=== PATIENT | male | born 1965 | race Two or more races ===

== ENCOUNTER → 2019-12-27 09:30 | Outpatient (BNVA) | payer MEDICARE, MEDICAID, SELFPAY | PROVIDERS: PCP Internal Medicine; Referring Provider Internal Medicine; Visit Provider Physician Assistant | DX: M17.12 Unilateral primary osteoarthritis, left knee (principal) | CPT/HCPCS: 20610; 99213; J1040 ==

== ENCOUNTER 2020-06-13 09:18 | Emergency (ER) | payer MEDICARE, MEDICAID, SELFPAY ==
--- NOTE | 2020-06-13 | ECG_ITS ---
Test Reason : CHEST PAIN Blood Pressure : / mmHG Vent. Rate : 078 BPM Atrial Rate : 078 BPM P-R Int : 188 ms QRS Dur : 086 ms QT Int : 356 ms P-R-T Axes : 035 -21 004 degrees QTc Int : 405 ms Normal sinus rhythm Voltage criteria for left ventricular hypertrophy Abnormal ECG When compared with ECG of 07-JUL-2019 12:16, No significant change was found Referred By: Generic ED Physician Electronically Signed By:BALDO CHASE
--- NOTE | ~2020-06-13 | XR_ITS ---
EXAMINATION: XR CHEST CLINICAL INFORMATION: Chest pain. COMPARISON: Chest done on 07/07/2019. TECHNIQUE: 2 views of the chest were obtained. FINDINGS: No significant abnormality is noted involving the heart, lungs, mediastinum, bony thorax or soft tissues. XR/XR chest 2V IMPRESSION: Unremarkable examination.
[2020-06-13 09:31] VITALS: BP 142/83; PULSE 78; RESP 20; TEMP 36.4; O2SAT 96
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
[2020-06-13] MEDS: 0.9 % Sodium Chloride 1,000 ML 999 ML IVCONT (09:52)
[2020-06-13 10:00] LABS: MANUAL DIFF FLAG NO
[2020-06-13 10:04] LABS: Basophils Percent Auto 0.1 % (0-2); Eosinophils Absolute Auto 0.1 X10*3/uL (0.0-0.4); Hematocrit 42.5 % (42-52); Hemoglobin 13.7 g/dl (14.0-18.0); Imm Gran Abs Auto 0.01 X10*3/uL (0.00-0.03); Imm Gran Pct Auto 0.1 % (0.0-0.4); Lymphocytes Absolute Auto 2.4 X10*3/uL (1.2-4.9); Lymphocytes Percent Auto 35.8 % (20-40); Mean Corpuscular HGB Conc 32.2 g/dl (31.0-36.0); Mean Corpuscular Hemoglobin 25.8 pg (27.0-33.0); Mean Corpuscular Volume 80.2 fL (80-98); Mean Platelet Volume 9.6 fL (9.4-12.4); Monocytes Absolute Auto 0.7 X10*3/uL (0.1-1.2); Neutrophils Absolute Auto 3.5 X10*3/uL (2.0-8.3); Platelet Count 275 X10*3/uL (160-400); White Blood Count 6.7 X10*3/uL (4.8-10.8)
[2020-06-13 10:11] LABS: Prothrombin Time 12.1 SEC (10.8-13.0)
[2020-06-13 10:14] LABS: Partial Thromboplastin Time 30.6 SEC (24.1-38.0)
[2020-06-13 10:38] LABS: Alanine Aminotransferase 29 U/L (0-40); Albumin Level 4.4 g/dL (3.5-5.0); Alkaline Phosphatase 56 U/L (39-117); Anion Gap 14 (12-20); Aspartate Amino Transferase 26 U/L (5-37); Bilirubin Total 0.5 mg/dL (0.0-1.0); Blood Urea Nitrogen 13 mg/dL (9-16); Calcium 9.3 mg/dL (8.4-10.2); Carbon Dioxide 24 mmol/L (22-29); Chloride 104 mmol/L (96-108); Estimated Glomerular Filt Rate > 60; Glucose Random 121 mg/dL (60-115); Magnesium 1.9 mg/dL (1.6-2.6); Potassium 4.7 mmol/L (3.3-5.1); Sodium 137 mmol/L (135-145); Total Protein 7.3 g/dL (6.5-8.0)
[2020-06-13 10:39] LABS: B Type Natriuretic Peptide 12 pg/mL (<100)
[2020-06-13 10:39] LABS: Troponin-I High Sensitivity < 3.5 ng/L (<3.5-35.0)
[2020-06-13 10:47] LABS: Influenza A PCR NEGATIVE (Negative); Influenza B PCR NEGATIVE (Negative); Resp Syncy Virus RNA Qual PCR NEGATIVE (Negative); SARS COV2 PCR INHOUSE NEGATIVE (Negative)
[2020-06-13 10:49] VITALS: BP 133/84; PULSE 74; RESP 18; TEMP 36.5; O2SAT 97
[2020-06-13 11:12] LABS: Glucose Urine UA NEG (NEG); Leukocyte Esterase Urine NEG (NEG); Nitrite Urine NEG (NEG); Specific Gravity - Urine 1.015 (1.005-1.025); Urine Blood NEG (NEG); Urine Ketones NEG (NEG); Urine Protein NEG (NEG-TRACE)
[2020-06-13 11:13] LABS: Appearance Urine CLEAR; Color Urine YELLOW
--- NOTE | 2020-06-13 11:36 | PC.NURSE ---
pt was evaluated by MD and PT, he was ambulatory with steady gait. He states pain better. IV removed. HE awaits discharge home.
[2020-06-13 11:45] VITALS: BP 133/84; PULSE 74; O2SAT 97
== END 2020-06-13 11:43 | disposition home or self-care (01) ==
PROVIDERS: Physician Assistant Medical; Emergency Provider Emergency Medicine Emergency Medical Services; PCP Internal Medicine
DX: K21.9 Gastro-esophageal reflux disease without esophagitis (principal); R07.89 Other chest pain; Z20.822 Contact with and (suspected) exposure to COVID-19; I10 Essential (primary) hypertension; Z86.73 Personal history of transient ischemic attack (TIA), and cerebral infarction without residual deficits
CPT/HCPCS: 0241U; 36415; 71046; 80053; 81003; 83735; 83880; 84484; 85025; 85610; 85730; 93005; 96360; 97161; 99284

== ENCOUNTER 2021-02-24 08:26 | Emergency (ER) | payer MEDICARE, MEDICAID, SELFPAY ==
--- NOTE | ~2021-02-24 | XR_ITS ---
EXAMINATION: XR CHEST CLINICAL INFORMATION: Left-sided rib pain COMPARISON: 06/13/2020 TECHNIQUE: 2 views of the chest were obtained. FINDINGS: Similar mild elevation right hemidiaphragm and crowding of lung markings on the right. No displaced rib fracture grossly. No significant abnormality is noted involving the heart, lungs, mediastinum, bony thorax or soft tissues. XR/XR chest 2V IMPRESSION: No active chest disease.
[2021-02-24 08:45] VITALS: BP 175/91; PULSE 82; RESP 18; TEMP 36.6; O2SAT 97; BMI 30.1
--- NOTE | 2021-02-24 09:46 | ED.GENADULT ---
HPI - General Adult General Chief complaint: Back Pain/Injury Stated complaint: back pain shortness of breath Time Seen by Provider: 02/24/21 09:32 Source: patient Mode of arrival: ambulatory Limitations: no limitations History of Present Illness HPI narrative: 55 y/o male with history of TBI, CVA, GERD, arthritis with chronic pain who presents to the ER with middle left back pain that started yesterday when he was cleaning his spare bedroom. He states he was twisting over and bending down to pick something up when his left middle back started hurting. The pain is throbbing and spasming and when it is severe it takes his breath away. He denies any fall or trauma. He has no chest pain or shortness of breath at rest. He has no fever cough. Pain is worse with movement and rotation. MD complaint: Left-sided thoracic back pain Onset (ago): day(s) (1) Location: back Radiation: non-radiation Severity: moderate Severity scale (1-10): 6 Quality: aching Pain Consistency: intermittent Relieving factors: immobilization and rest Exacerbating factors: movement Associated symptoms: denies other symptoms Treatments prior to arrival: none Related Data Home Medications Medication Instructions Recorded Confirmed amlodipine 5 mg-atorvastatin 20 mg 1 tab PO DAILY 12/27/19 tablet bupropion HCl 75 mg tablet 75 mg PO TID 12/27/19 onabotulinumtoxinA 100 unit SUBCUT 12/27/19 solution for injection (Botox) pravastatin 20 mg tablet 20 mg PO BEDTIME 12/27/19 sumatriptan 5 mg/actuation nasal 5 mg INTRANASAL Q2-4H PRN 12/27/19 spray Previous Rx's Medication Instructions Recorded cyclobenzaprine 10 mg tablet 10 mg PO TID PRN #10 tab 02/24/21 ibuprofen 600 mg tablet 600 mg PO Q8H PRN #14 tab 02/24/21 Allergies Allergy/AdvReac Type Severity Reaction Status Date / Time oxycodone [OxyContin] Allergy Unknown Verified 05/14/19 00:00 MSCONTIN Allergy Unknown HEADACHES Uncoded 11/21/19 18:10 Pt states no food allergies Allergy Unknown Uncoded 05/14/19 00:00 Review of Systems Review of Systems: Constitutional: No Fever, No Chills Cardiovascular: No Chest Pain, No SOB Respiratory: No Cough, No Sputum, No Wheezing, No dyspnea Gastrointestinal: No Nausea, No Vomiting, No Diarrhea, No abdominal Pain Genitourinary: No Dysuria, No Urinary Frequency, No Hematuria Musculoskeletal: No joint pain, + Myalgias Skin: No Skin Lesions, No rash Neuro: No Weakness, No Numbness Heme/Lymph: No Bruising PMFSH Past Medical History Medical History (Updated 02/24/21 @ 10:14 by FRANK Marino) Chronic pain High cholesterol Hypertension Migraines Surgical History H/O left knee surgery History of appendectomy Social History Social History Alcohol intake: never Advance Directives: No Advance Directives Information Provided: No Physical Exam Vital Signs: Vital Signs: Last Vital Signs Temp 97.9 F 02/24/21 08:45 Pulse 82 02/24/21 08:45 Resp 18 02/24/21 08:45 BP 175/91 H 02/24/21 08:45 Pulse Ox 97 02/24/21 08:45 BMI result Body Mass Index 30.1 Appearance: Alert. Oriented X3. No acute distress. HEENT: normal inspection CVS: Normal heart rate and rhythm. Pulses normal. Respiratory: No respiratory distress. Lungs are clear throughout. Back: Left middle thoracic area with soft tissue tenderness and palpable muscle spasm. No ecchymosis of left flank no CVA tenderness. Normal range of motion of the spine. Pain with rotation to the right Skin: Skin warm and dry. Normal skin color. Normal skin turgor. No rashes. Extremities: No inspection, normal range of motion x4 Neuro: Oriented X 3. No motor deficit. No sensory deficit. Course Course Course Narrative: 55-year-old male presenting with left-sided middle back pain that started yesterday after he was cleaning. He has tenderness and spasm on examination. Chest x-ray is clear. His clinical presentation and examination is most consistent with muscular back pain and spasm. Will prescribe muscle relaxers, NSAID, Lidoderm patches and have him follow-up with his primary care doctor next week. Patient is stable for discharge home. Patient agrees with plan. Discharge Plan Discharge Clinical Impression: Acute left-sided thoracic back pain Patient Disposition: Home, Self-Care Instructions: Back Pain (ED) Additional Instructions: Your x-ray today was normal. No bending, lifting or twisting. Use ice several times per day for 20 minutes at a time for the next 48 hours and then change to heat. Take medications as prescribed to help with pain and discomfort. Recommend [id number] topical lidocaine patches, apply to the area once per day. Follow up with your Primary Care Doctor this week. If your pain worsens, if you develop new numbness, tingling, weakness, loss of function or incontinence call 911 or come back to the ER right away for evaluation. Prescriptions: New cyclobenzaprine 10 mg tablet 10 mg PO TID PRN (Reason: muscle spasm) Qty: 10 RF: 0 ibuprofen 600 mg tablet 600 mg PO Q8H PRN (Reason: pain) Qty: 14 RF: 0 Interventions: ED Discharge Assessment Last Done: 02/24/21 10:20 Discharge Date/Time: 02/24/21 10:21
== END 2021-02-24 10:21 | disposition home or self-care (01) ==
PROVIDERS: Emergency Provider Emergency Medicine Emergency Medical Services; PCP Internal Medicine
DX: M54.6 Pain in thoracic spine (principal); R07.9 Chest pain, unspecified; Z79.899 Other long term (current) drug therapy
CPT/HCPCS: 71046; 99283

== ENCOUNTER 2021-04-27 10:13 | Emergency (ER) | payer MEDICARE, MEDICAID, SELFPAY ==
[2021-04-27 10:31] VITALS: BP 180/80; PULSE 77; RESP 16; TEMP 36.4; O2SAT 98; BMI 30.8
--- NOTE | 2021-04-27 10:52 | ED.URI ---
HPI - URI/Sore Throat General Chief Complaint: Upper Respiratory Symptoms Stated Complaint: Sore Throat Time Seen by Provider: 04/27/21 10:52 Source: patient Mode of arrival: ambulatory Limitations: no limitations History of Present Illness HPI Narrative: Patient is a 55 year old male presenting to the emergency department today with a sore throat. Patient states that since last Monday, he has had a sore throat. Patient states that he was supposed to be getting a root canal today so he was started on Amoxicillin last Monday but he isn't sure what dose. Patient denies any dizziness, lightheadedness, abdominal pain, nausea, vomiting, fever, chills, blurry vision, double vision, loss of vision, chest pain, cough, difficulty breathing, shortness of breath, back pain, night sweats, pain with urination, increased urinary frequency, increased urinary urgency, blood in his urine or stool, syncope or a near syncopal episode, recent trauma or falls, bowel incontinence, bladder incontinence, bowel retention, bladder retention, or any other complaints at this time. MD elicited complaint: sore throat Onset (ago): day(s) (4) Consistency: constant Severity: mild Treatments prior to arrival: antibiotics (Amoxicillin) Related Data Home Medications Medication Instructions Recorded Confirmed amlodipine 5 mg-atorvastatin 20 mg 1 tab PO DAILY 12/27/19 tablet bupropion HCl 75 mg tablet 75 mg PO TID 12/27/19 onabotulinumtoxinA 100 unit SUBCUT 12/27/19 solution for injection (Botox) pravastatin 20 mg tablet 20 mg PO BEDTIME 12/27/19 sumatriptan 5 mg/actuation nasal 5 mg INTRANASAL Q2-4H PRN 12/27/19 spray Previous Rx's Medication Instructions Recorded cyclobenzaprine 10 mg tablet 10 mg PO TID PRN #10 tab 02/24/21 ibuprofen 600 mg tablet 600 mg PO Q8H PRN #14 tab 02/24/21 amoxicillin 500 mg capsule 500 mg PO BID 10 Days #20 cap 04/27/21 methylprednisolone 4 mg tablets in 4 mg PO DAILY #21 ea 04/27/21 a dose pack (Medrol (Mane)) Allergies Allergy/AdvReac Type Severity Reaction Status Date / Time oxycodone [OxyContin] Allergy Unknown Verified 05/14/19 00:00 MSCONTIN Allergy Unknown HEADACHES Uncoded 11/21/19 18:10 Pt states no food allergies Allergy Unknown Uncoded 05/14/19 00:00 Review of Systems Constitutional: Constitutional: Reports no additional constitutional complaints, Denies chills, Denies fever(s) and Denies night sweats Eyes: Eyes: Reports no additional eye complaints, Denies blurry vision, Denies change in vision, Denies diplopia, Denies eye discharge, Denies loss of vision and Denies eye pain ENT: Denies dizziness and Reports sore throat Cardiovascular: Cardiovascular: Reports no additional cardiovascular complaints, Denies chest pain, Denies lightheadedness, Denies Loss of Consciousness and Denies dyspnea Respiratory: Respiratory: Reports no additional respiratory complaints and Denies dyspnea Gastrointestinal: Gastrointestinal: Reports no additional gastrointestinal complaints, Denies abdominal pain, Denies melena, Denies hematochezia, Denies change in bowel habits and Denies change in stool character Genitourinary: Genitourinary: Reports no additional male genitourinary complaints, Denies hematuria, Denies oliguria, Denies difficulty urinating, Denies dysuria, Denies urinary frequency, Denies urinary hesitancy, Denies urinary incontinence and Denies urinary urgency Musculoskeletal: Musculoskeletal: Reports no additional musculoskeletal complaints, Denies numbness and Denies tingling Neurologic: Denies dizziness, Denies loss of vision, Denies numbness and Denies tingling Psychiatric: Psychiatric: Reports no additional psychiatric complaints Endocrine: Endocrine: Reports no additional endocrine complaints Hematologic/Lymphatic: Hematologic/Lymphatic: Reports no additional hematologic/lymphatic complaints Allergic/Immunologic: Allergic/Immunologic: Reports no additional allergic/immunologic complaints [facility] Past Medical History Attestation statement: The following information was validated with the patient. Source: old records reviewed Medical History Chronic pain High cholesterol Hypertension Migraines Surgical History H/O left knee surgery History of appendectomy Social History Social History Alcohol intake: never Advance Directives: No Advance Directives Information Provided: No Physical Exam Vital Signs: Vital Signs: Last Vital Signs Temp 97.5 F 04/27/21 10:31 Pulse 77 04/27/21 10:31 Resp 16 04/27/21 10:31 BP 180/80 H 04/27/21 10:31 Pulse Ox 98 04/27/21 10:31 BMI result Body Mass Index 30.8 Const: General: cooperative, no acute distress, alert and awake Nutritional Appearance: well nourished Orientation/consciousness: patient oriented x3 Limitations: no limitations HENMT: Head: Yes normal to inspection and Yes atraumatic Ears: hearing grossly normal bilaterally and external ears normal General nose exam: Normal external nose present, no nasal discharge noted and no epistaxis Face and sinus: Yes normal facial exam, No abrasion and No laceration Mouth: Normal oral and palatal mucosa present, no drooling and no muffled voice Throat: Yes uvula midline and Yes other (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) Eyes: General: appearance normal, both eyes and all related structures Periorbital: periorbital findings normal Eyelids: Yes eyelids normal Conjunctivae: conjunctivae normal Pupils: Equal, round and reactive pupils present EOM: EOMs intact bilaterally Neck: Neck: Yes normal visual inspection, Yes full ROM and Yes no lymphadenopathy Chest: Chest palpation & inspection: normal inspection of the chest Resp: Effort & Inspection: normal respiratory effort and able to speak in complete sentences Auscultation: clear to auscultation bilaterally GI: Inspection: Yes normal to inspection Neuro: General: patient oriented x3 and moves all extremities Cranial nerves: Yes Equal, round and reactive pupils present Cognition (Neuro): normal cognition Motor exam (neuro): 5/5 motor strength present throughout Sensory Exam: Normal double simultaneous stimulation for sensation Coordination: [id number] test normal Extrem: General: Yes normal to inspection, Yes full ROM and Yes capillary refill normal Psych: Appearance: grossly normal Mental Status: mental status grossly normal Affect: normal affect Attitude: cooperative Thought process: Normal thought process present Thought content: Normal thought content present Insight: Good insight present (Psych) MDM - URI/Sore Throat MDM Narrative Medical decision making narrative: Patient is a 55 year old male presenting to the emergency department today with a sore throat. Patient's physical exam showed posterior pharyngeal erythema with exudates however, the patient's voice was appropriate, not hoarse, and the patient's uvula was midline. I explained my physical exam findings to the patient. I answered all questions asked by the patient. I explained to the patient that he is experiencing strep throat and that since he does not know his current dose of Amoxicillin, I will write a prescription for the appropriate dose as well as low dose steroids to assist with his discomfort. I stressed the importance of the patient taking his medication as prescribed. I stressed the importance of the patient following up with his primary care provider and dentist as scheduled. I stressed the importance of the patient returning to the emergency department immediately if his symptoms were to worsen or if he were to develop any hoarseness, drooling, dizziness, shortness of breath, difficulty breathing, chest pain, blurry vision, loss of vision, nausea, vomiting, abdominal pain, fever, chills, back pain, or any other complaints. Patient verbalized agreement and understanding with this treatment plan and discharge. Differential Diagnosis Differential diagnosis: Likely upper respiratory infection, viral infection and pharyngitis Medical Records Attestation: I reviewed the patient's medical records. Discharge Plan Discharge Clinical Impression: Pharyngitis Patient Disposition: Home, Self-Care Instructions: Pharyngitis (ED) Additional Instructions: Follow up with your primary care provider. Return to the emergency department immediately if your symptoms worsen or if you develop any dizziness, shortness of breath, difficulty breathing, chest pain, blurry vision, loss of vision, nausea, vomiting, abdominal pain, fever, chills, back pain, or any other complaints. Prescriptions: New amoxicillin 500 mg capsule 500 mg PO BID 10 Days Qty: 20 0RF methylprednisolone [Medrol (Mane)] 4 mg tablets,dose pack 4 mg PO DAILY Qty: 21 0RF No Action cyclobenzaprine 10 mg tablet 10 mg PO TID PRN (Reason: muscle spasm) Qty: 10 0RF ibuprofen 600 mg tablet 600 mg PO Q8H PRN (Reason: pain) Qty: 14 0RF Interventions: ED Discharge Assessment Last Done: 04/27/21 11:43 Discharge Date/Time: 04/27/21 11:44 Print Language: [place]
== END 2021-04-27 11:44 | disposition home or self-care (01) ==
LOC: HO.ED 11:23
PROVIDERS: Emergency Provider Emergency Medicine; PCP Internal Medicine
DX: J02.9 Acute pharyngitis, unspecified (principal); I10 Essential (primary) hypertension
CPT/HCPCS: 99283

== ENCOUNTER 2023-02-09 09:43 | Outpatient (AMB) | payer MEDICARE, MEDICAID, SELFPAY ==
--- NOTE | 2023-02-09 09:52 | A.OFFVIS_ITS ---
Intake Intake Visit Reasons: OV - Left Knee OA - Last Inj 12/27/2019 Intake Note: Aden is a 57 year old male who presents today for a follow up appointment of his left knee. Last injection done 12/27/2019 with Nanette. Patient reports that this injection was helpful, he would like to repeat injection today. Allergies oxycodone [OxyContin] Allergy (Unknown, Verified 02/09/23 10:06) Unknown MSCONTIN Allergy (Unknown, Uncoded 02/09/23 10:06) HEADACHES Pt states no food allergies Allergy (Unknown, Uncoded 02/09/23 10:06) Unknown HPI OV - Left Knee OA - Last Inj 12/27/2019 HPI Details Aden is a 57 year old man who presents to discuss his left knee OA. He complains of pain with daily activity He last received a knee injection on 12/27/19, by FRANK Pena. He found this helpful and would like to repeat an injection today. He has a hx of left knee surgery in ~5834-2061. [facility] Medical History Chronic pain Migraines High cholesterol Hypertension Surgical History History of appendectomy H/O left knee surgery Social History Alcohol intake: never Review of Systems Const All systems reviewed & are unremarkable except as noted in HPI and below Physical Exam Const General: no acute distress, alert and awake Orientation/consciousness: patient oriented x3 HEENT Head: Yes normocephalic and Yes atraumatic Eyes EOM: EOMs intact bilaterally Resp Effort & Inspection: normal respiratory effort and able to speak in complete sentences Cardio Jugular venous distension: no JVD Skin General skin exam: turgor normal Rashes: no rashes Neuro General: patient oriented x3 Psych Other: no jlt lateral retropatellar TTP Appearance: grossly normal Affect: normal affect Attitude: cooperative Office Procedures Joint Injection/Drain Joint Injection/Drain Details: Injected 1 mL of Decadron and 3 mL 1% lidocaine and 3 mL of 0.25% Marcaine. Site was prepped using aseptic technique. Patient tolerated the procedure well. Primary Site: left knee Approach Used: anterolateral Coding 53779 - Large joint Procedure code (CPT) selection complete Assessment & Plan Assessment & Plan (1) Patellofemoral arthritis of left knee: Code(s): M17.12 - Unilateral primary osteoarthritis, left knee Plan: Injected left knee. Stable and without need for more aggressive interventions Plan Scribed for Herberth Caldwell MD by Rahul Dempsey, medical or surgical instrument maker, on 02/09/23 at 10:45 AM, EST. Coding Level of Care Code Est Pt Level 3 (84684) Diagnoses Patellofemoral arthritis of left knee M17.12 CPT Codes Coding - Large joint: 45053 - Large joint ([id number])
== END 2023-02-09 11:25 | disposition home or self-care (01) ==
PROVIDERS: PCP Internal Medicine; Visit Provider Orthopaedic Surgery
DX: M17.12 Unilateral primary osteoarthritis, left knee (principal)
CPT/HCPCS: 20610; 99213

== ENCOUNTER → 2023-02-09 09:43 | Outpatient (BNVA) | payer MEDICARE, MEDICAID, SELFPAY | PROVIDERS: PCP Internal Medicine; Visit Provider Orthopaedic Surgery | DX: M17.12 Unilateral primary osteoarthritis, left knee (principal) | CPT/HCPCS: 20610; 99212; J0665; J1100 ==

== ENCOUNTER 2024-04-27 09:11 | Emergency (ER) | payer MEDICARE, MEDICAID, SELFPAY ==
--- NOTE | ~2024-04-27 | XR_ITS ---
CLINICAL HISTORY: short of breath 1 view chest x-ray Comparison: 06/13/2020 Findings: The lungs are clear. Heart size is normal. No acute fracture. IMPRESSION: 1. No acute findings. This document has been electronically signed by: Tara Gates MD on 04/27/2024 11:00:48
[2024-04-27 09:32] VITALS: BP 126/82; PULSE 106; RESP 18; TEMP 37.4; O2SAT 96; BMI 28.7
--- OUTSIDE RECORDS SUMMARY | 2024-04-27 09:52 | XMS_ITS ---
Author Name [facility] Organization Unknown History of Medication Use Medication Directions Dispensed Refills Start Date End Date Stat us Cholecalciferol (Vitamin D) 50 MCG (1999) CAPS Take 1 capsule by mouth daily. 04/03/2023 active SUMAtriptan (IMITREX) 50 MG tablet Take 50 mg by mouth every 2 (two) hours as needed for migraine. 09/15/2023 aborted buPROPion (Wellbutrin SR) 200 MG 12 hr tablet Take 300 mg by mouth daily. active atorvastatin (LIPITOR) tablet 10 mg Take 1 tablet (10 mg total) by mouth every night at bedtime. 07/04/2023 active pravastatin (PRAVACHOL) tablet 20 mg Take 20 mg by mouth daily. 09/15/2023 aborted botulinum toxin type A (BOTOX) 100 units SOLR injection every 3 (three) months. active Meloxicam 10 MG CAPS Take by mouth. 09/03 aborted Problems Problem Status Onset Date Problem Type Date of Resolution Source Tension headache active EncounterDiagnosisAct CTTHNEMG Migraine without aura and without status migrainosus, not intractable active EncounterDiagnosisAct CTT HNEMG
--- OUTSIDE RECORDS SUMMARY | 2024-04-27 09:53 | XMS_ITS | Encounter Summary ---
Author Organization [facility] Address [address] [place] [address] Care Team Providers Care External Auditor Name Role Phone Corinne Devi MD Primary Care Provider [phone] Reason for Referral * Orthopedic (Routine) - Authorized Specialty Diagnoses / Procedures Referred By Contac t Referred To Contact Orthopedic Surgery / Orthopaedic Surgery Diagnoses Arthritis of carpometacarpal (CMC) joint of right thumb Procedures Small Inj/Asp: R thumb CMC Aleida Iglesias MD [address] [address] Phone: tel: fax: Referral ID Status Reason Start Date Expiration Date V isits Requested Visits Authorized [id number] Authorized 04/05/2024 04/05/2025 1 1 Reason for Visit * Reason Comments Follow-up Had surgery a few ye ars back but gets intermittent swelling and pain with activity Encounter Details Date Type Department Care Team (Latest Contact Info) Description 04/05/2024 10:15 AM EST Office Visit Orthopedic Surgery - [place] [address] [address] Aleida Iglesias MD [address] [address] Arthritis of carpometacarpal (CMC) joint of right thumb (Primary Dx) Social History Tobacco Use Types Packs/Day Years Used Date Smoking Tobacco: Former Cigarettes Q uit: 12/09/1984 Smokeless Tobacco: Never Alcohol Use Standard Drinks/Week Comments Never 0 (1 standard drink = 0.6 oz pur e alcohol) Housing Instability Answer Date Recorde d Are you worried that in the next 2 months you may not have stable housing? No 03/29/2024 Food Access & Nutrition Answer Date Rec orded Do you have access to a vari ety of food including fruits and vegetables? Yes 03/29/2024 Access to Healthcare Answer Date Record ed Within the last 3 months, ho w many times did you visit the emergency department for your medical care? 0 03/29/2024 Health Literacy Answer Date Recorded How often do you need to hav e someone help you when you read instructions, pamphlets, or other written material from your doctor or pharmacy? Rarely 03/29/2024 Caregiver: How often do you need to have someone help you when you read instructions, pamphlets, or other written material from your doctor or pharmacy? Not on file 03/29/2024 Financial Risk Answer Date Recorded How hard is it for you to pa y for the very basics like food, housing, medical care, and air conditioning / heating? Somewhat hard 03/29/2024 Transportation Answer Date Recorded Has the lack of transportati on kept you from meetings, work, or from getting things needed for daily living? No Has the lack of transportati on kept you from medical appointments or from getting medications? No 03/29/2024 Social Isolation Answer Date Recorded How often do you feel lonely or isolated from th ose around you? Never 03/29/2024 Food Risk Answer Date Recorded Within the past 12 months we worried whether our food would run out before we got money to buy more. Never true 03/29/2024 Within the past 12 months th e food we bought just didn't last and we didn't have money to get more. Never true 03/29/2024 Dependent Care Answer Date Recorded Do you need help finding or paying for care for your loved ones. For example, residential child care counselor or elderly care for an older adult? No 03/29/2024 Education Answer Date Recorded Do you think completing more education or training, like finishing a GED, going to college, or learning a trade, would be helpful for you? No 03/29/2024 Employment and Income Answer Date Recor ded During the last four weeks, have you been actively looking for work? No 03/29/2024 Living Situation Answer Date Recorded What is your living situation? 0 03/29/2024 Sex and Gender Information Value Date Recorded Sex Assigned at Male 04/03/2024 1:38 PM EST Legal Sex Male 6:16 PM EST Gender Identity Male 04/03/2024 1:38 PM EST Sexual Orientation Straight 04/03/2024 1: 38 PM EST documented as of this encounter Last Filed Vital Signs Vital Sign Reading Time Taken Comments Blood Pressure - - Pulse - - Temperature - - Respiratory Rate - - Oxygen Saturation - - Inhaled Oxygen Concentration - - Weight 95.3 kg (210 lb) 04/05/2024 10:11 AM EST Height 177.8 cm (5' 10 ) 04/05/2024 10:11 AM EST Body Mass Index 30.13 04/05/2024 10:11 AM EST documented in this encounter Progress Notes * Aleida Iglesias MD - 04/05/2024 10:15 AM ESTAssociated Order(s): Small Inj/Asp: R thumb CMC CHIEF COMPLAINT/REASON FOR VISIT: Right thumb pain SUBJECTIVE: Patient returns with a new issue. He states that with the recent snow fall he had been out shoveling in the wake of that really aggravated his right thumb. Both hands are a bit sore but it is the right one that persisted. When he uses his hand now he notes that it looks swollen around the thumb raythat is achy and painful. He does not report a history of any injury to that thumb in particular. He is not having any numbness or tingling. OBJECTIVE: There is no visible swelling at present of either thumb ray however what is noticeable looking at the 2 [id number] is that he has a slightly angulated resting posture of the right phalanx on the metacarpal. It looks like he probably has some chronic laxity of the radial collateral ligament. When I test the 2 sides the right side is definitely more lax. He has a very discernible endpoint of the RCL on his left side. The UCL is intact on both sides. There is no swelling. There is some crepitance to palpation at the right basal joint. There is no crepitance on the left. XR Fingers 2+ Views bilat AP, lateral, oblique of diqq-le-iyes bilateral thumbs was obtained on 04/05/2024. There are no prior images available for comparison. There is some generalized osteopenia. On the AP views what is most notable is that the resting posture of the MP joint of the right thumb suggest chronic laxity of the radial collateral ligament. There is some arthrosis on the head of the metacarpal. There is some mild joint space narrowing at the basal joint more so on the right than on the left. There are some subchondral cysts of the trapezium on the right. Impression: Laxity of the radial collateral ligament of the MP joint on the right. CMC arthritis on the right thumb. ASSESSMENT: 1. Arthritis of carpometacarpal (CMC) joint of right thumb Patient has some arthritis at the thumb. I reviewed the x-rays with him in detail. He also has somelaxity at the MP joint. I think what is more symptomatic for him is the basal joint. Treatment options including splinting, injections, and surgery were reviewed. Will try an injection right now to quiet down and he will get a CMC splint dispensed. PLAN: Small Inj/Asp: R thumb CMC Indications: pain Details: 25 G needle, dorsal approach Medications: 20 mg triamcinolone acetonide 40 mg/mL The dorsum of the right CMC joint was prepped with Betadine and alcohol. Skin was anesthetized witha small wheal of 1% lidocaine with epinephrine. After that had a chance to take effect we then prepped the skin again and I then injected half a cc of 40 mg of Kenalog into the joint. A bandage was applied. He tolerated this well. Post injection instructions were given. Informed Consent: Laterality: Right Procedure/treatment, purpose, treatment alternatives, risks/potential complications and benefits explained: yes Patient questions answered: yes Patient agrees, verbalizes understanding, and wants to proceed: yes Consent given by: Patient Informed consent discussion completed by Physician/CATALINA with patient: Verbal Pre-procedure timeout performed: yes Patient tolerated this well. He will follow-up with us on a as needed basis. Aleida Iglesias MD documented in this encounter Plan of Treatment Upcoming Encounters Date Type Department Care Team (Late st Contact Info) Description 07/12/2024 8:30 AM EDT Office Visit [facility] - [place] 175 [facility] [address] [place] [phone] Tess Sun MD 175 [facility] [address] [place] [phone] 08/02/2024 8:45 AM EDT Office Visit Adult Medicine [facility] [address] [place] [address] Corinne Devi MD [address] [place] [address] 12/03/2024 9:30 AM EDT Consult Bariatric Surgery - [place] 175 [facility] [address] [place] [phone] [facility] 271 [facility] 120 [place] [address] 01/21/2025 8:45 AM EST Office Visit Pulmonolgy - [place] 175 [facility] 200 [place] [phone] Gertrude Alaniz MD 175 [facility] [address] [place] [address] documented as of this encounter Procedures Procedure Name Priority Date/Time Associated Diagnosis Comments IN ARTHROCENTESIS/ASP IRATION/INJECTION SMALL JOINT/BURSA WO U/S GUIDANCE Routine 04/05/2024 10:15 AM EST Arthritis of carpometacarpal (CMC) joint of right thumb documented in this encounter Results * IN ARTHROCENTESIS/ASPIRATION/INJECTION SMALL JOINT/BURSA WO U/S GUIDANCE (04/05/2024 10:15 AM EST) Aleida Arce MD - 04/05/2024 10:15 AM EST Aleida Iglesias MD ? 04/05/2024 ??2:07 PM Small Inj/Asp: R thumb CMC Indications: pain Details: 25 G needle, dorsal approach Medications: 20 mg triamcinolone acetonide 40 mg/mL The dorsum of the right CMC joint was prepped with Betadine and alcohol. ?? Skin was anesthetized with a small wheal of 1% lidocaine with epinephrine. After that had a chance to take effect we then prepped the skin again and I then injected half a cc of 40 mg of Kenalog into the joint. ??A bandage was applied. ??He tolerated this well. ??Post injection instructions were given. Informed Consent: ??Laterality: ??Right ??Procedure/treatment, purpose, treatment alternatives, risks/potential complications and benefits explained: yes ?Patient questions answered: yes ?Patient agrees, verbalizes understanding, and wants to proceed: yes ?Consent given by: ??Patient ??Informed consent discussion completed by Physician/CATALINA with patient: ?? Verbal ??Pre-procedure timeout performed: yes ?? Aleida Iglesias MD IN CLINIC/BEDSIDE ORDERABLES Final Result documented in this encounter Visit Diagnoses Diagnosis Arthritis of carpometacarpal (CMC) joint of right thumb- Primary documented in this encounter Administered Medications Inactive Administered Medications - up to 3 most recent administrations Medication Order MAR Action Action Date Dose Rate Site triamcinolone acetonide (KENALOG-40) 40 mg/mL injection 20 mg 20 mg, intra-articular, Once PRN Procedure, Starting on Mon04/05/24 at 1015, For 1 doseIndications:Arthritis of carpometacarpal (CMC) joint of right thumb Given 04/05/2024 10:15 AM EST 20 mg documented in this encounter Additional Health Concerns Assessment Noted Time PHQ-9 Depression Total Score: 0 03/29/19 9:20 AM EST documented as of this encounter Care Teams External Auditor Relationship Specialty Start Date End Date Corinne Devi MD [address] [place] [id number] PCP - General Internal Medicine 04/04/24 documented as of this encounter
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
--- OUTSIDE RECORDS SUMMARY | 2024-04-27 09:53 | XMS_ITS | Encounter Summary ---
Author Organization [facility] Address [address] [place] [address] Care Team Providers Care Balance Recesser Name Role Phone Corinne Devi MD Primary Care Provider [phone] Reason for Referral * Hospital - Outpatient (Routine) - Closed Specialty Diagnoses / Procedures Referred By Migel branch Referred To Contact Gastroenterology Diagnoses History of colon polyps Procedures COLONOSCOPY Anesthesia - MAC; [facility] [[email or web address]] ENDOSCOPY Henry Madison MD [address] [address] Phone: tel: fax: [facility] Endoscopy [address] [place] [address] Phone: tel: Referral ID Status Reason Start Date Expiration Date Visits Re quested Visits Authorized [id number] Closed 02/14/2024 02/13/2025 1 1 Reason for Visit * Hospital - Outpatient (Routine) - Closed Specialty Diagnoses / Procedures Referred By Migel branch Referred To Contact Gastroenterology Diagnoses History of colon polyps Procedures COLONOSCOPY Anesthesia - MAC; [facility] [[email or web address]] ENDOSCOPY Henry Madison MD [address] [address] Phone: tel: fax: [facility] Endoscopy [address] [place] [address] Phone: tel: Referral ID Status Reason Start Date Expiration Date Visits Re quested Visits Authorized [id number] Closed 02/14/2024 02/13/2025 1 1 Encounter Details Date Type Department Care Team (Latest Contact Info) Description 04/09/2024 2:02 PM EST - 04/09/2024 11:59 PM EST Hospital Encounter [facility] Endoscopy [address] [place] [phone] Henry Madison MD 175 [facility] [address] [place] [address] Stanislav Avelar MD [address] [place] [address] History of colon polyps Discharge Disposition: Home or Self Care Social History Tobacco Use Types Packs/Day Years [...] your loved ones. For example, early childhood educator aide or elderly care for an older adult? [...] Sign Reading Time Taken Comments Blood Pressure 125/88 04/09/2024 4:06 PM EST Pulse 74 04/09/2024 4:06 PM EST Temperature 37.2 ??C (99 ??F) 04/09/2024 3:46 PM EST Respiratory Rate 18 04/09/2024 4:06 PM EST Oxygen Saturation 100% 04/09/2024 4:06 PM EST Inhaled Oxygen Concentration - - Weight 95.3 kg (210 lb) 04/09/2024 2:25 PM EST Height 177.8 cm (5' 10 ) 04/09/2024 2:25 PM EST Body Mass Index 30.13 04/09/2024 2:25 PM EST documented in this encounter Discharge Instructions * Attachments The following attachments cannot be sent through Care Everywhere. * Colonoscopy: Post-op (Armenian) documented in this encounter Medications at Time of Discharge atorvastatin (LIPITOR) 10 mg tablet Take 1 tablet (10 mg total) by mouth every night at bedtime. 07/04/2023 botulinum toxin Type A (BOTOX) 100 unit recon soln injection every 3 (three) months. buPROPion SR (WELLBUTRIN SR) 200 mg 12 hr tablet Take 300 mg by mouth daily. dulaglutide (TRULICITY) 0.75 mg/0.5 mL pen injector injectionIndications :Type 2 diabetes mellitus with peripheral vascular disease (CMS/HCC) Inject 0.5 mL (0.75 mg total) under the skin every 7 (seven) days. 6 mL 04/04/2024 fluticasone propionate (FLONASE) 50 mcg/actuation nasal spray spray/apply 1 spray in each nostril daily. losartan (COZAAR) 50 mg tablet Take 1 tablet (50 mg total) by mouth every night at bedtime. 03/27/[address] capsule Take 1 capsule (40 mg total) by mouth 1 (one) time each day before breakfast. 02/14/2024 rizatriptan (MAXALT-LIQUOR TESTER) 10 mg disintegrating tablet TAKE 1 TABLET BY MOUTH NEEDED FOR MIGRAINE. MAY REPEAT IN 2 HOURS IF NEEDED 10 tablet 3 01/16/2024 cholecalciferol (VITAMIN D-3) 50 mcg (2,000 unit) capsule Take 1 capsule by mouth daily. 04/03/2023 documented as of this encounter Discharge Disposition Disposition Code Departure Means Destination Home or Self Care documented in this encounter Progress Notes * Neva Swan RN - 04/09/2024 3:50 PM EST Problem: Cognitive:Periop Procedure - Minor Goal: Knowledge of disease or condition will improve Outcome: Adequate for Discharge Problem: Sensory:Periop Procedure - Minor Goal: Demonstrates/reports adequate pain control Outcome: Adequate for Discharge The patient verbalized understanding of discharge instructions. Fall risk reviewed. Call gonzalez at bedside. * Aleida Haro RN - 04/09/2024 2:24 PM EST Problem: Cognitive:Periop Procedure - Minor Goal: Knowledge of disease or condition will improve Outcome: Progressing Problem: Sensory:Periop Procedure - Minor Goal: Demonstrates/reports adequate pain control Outcome: Progressing PT VERBALIZED UNDERSTAND OF DC INSTRUCTIONS, FALL RISK REVIEWED, CALL GONZALEZ AT BEDSIDE. 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 pylori infection 07/18/2008 DX:H. pylori infection; COMMENT: [place] - Treated with Pylera & Prilosec x 10 days. Hearing loss 08/09/2011 DX:Hearing loss Hemorrhoids DX:Hemorrhoids Hernia, inguinal, bilateral 08/16/2010 DX:Hernia, inguinal, bilateral Hypercholesterolemia 07/12/2016 DX:Hypercholesterolemia Hypertension 08/09/2011 DX:Hypertension Hypertension DX:Hypertension Low back pain 08/16/2010 DX:Low back pain Lumbar herniated disc 08/25/2010 DX:Lumbar herniated disc Migraine Migraines DX:Migraines Obstructive sleep apnea DX:Obstructive sleep apnea Onychomycosis 06/17/2021 DX:Onychomycosis JOHN (obstructive sleep apnea) 07/13/2015 DX:JOHN (obstructive sleep apnea); COMMENT: [facility] Polysomnogram treatment study. Date 04/09/2016 . SE 61 % SM 73 %; spent 72 % of the study in REM. At the optimal pressure of 7; RDI 2 (AHI 0), RERAs 2; and, average oxygen saturation was 93%. For the entire study, PLMs -31. Speech or language problem 06/11/2014 DX:Speech or language problem Stroke (CMS/HCC) 1988 DX:Stroke (HCC) Syncope and collapse 01/28/2013 DX:Syncope and collapse Vitamin D deficiency 03/14/2017 DX:Vitamin D deficiency Past Surgical History: Procedure Laterality Date APPENDECTOMY PROCEDURE:APPENDECTOMY COLONOSCOPY 07/2008 PROCEDURE: HISTORICAL COLONOSCOPY; COMMENT: [place] - 3 mm sigmoid hyperplastic polyp, otherwise negative. COLONOSCOPY 12/18/2018 PROCEDURE: HISTORICAL COLONOSCOPY; COMMENT: Dr. Aguilar -grade 3 hemorrhoids, tortuous colon, otherwise negative. Repeat in 5 years due to fair prep. ESOPHAGOGASTRODUODENOSCOPY 07/2008 PROCEDURE: [place] ESOPHAGOGASTRODUODENOSCOPY TRANSORAL DIAGNOSTIC; COMMENT: [place] - antral gastritis, +H. pylori (treated) otherwise negative. ESOPHAGOGASTRODUODENOSCOPY 06/22/2017 PROCEDURE: [place] EGD TRANSORAL BIOPSY SINGLE/MULTIPLE; COMMENT: normal with normal esophageal and gastric biopsies FINGER TENDON REPAIR Right 02/22/2018 thumb KNEE ARTHROSCOPY Left 2012 PROCEDURE:KNEE ARTHROSCOPY KNEE SURGERY 2014 PROCEDURE: HISTORICAL KNEE SURGERY OTHER SURGICAL HISTORY 06/23/2011 PROCEDURE: [place] HEMORRHOIDECTOMY INTERNAL RUBBER BAND LIGATIONS OTHER SURGICAL HISTORY Right 02/23/2018 PROCEDURE: [place] CROSS INTRINSIC TRANSFER EACH TENDON ROTATOR CUFF REPAIR Left 2016 PROCEDURE:ROTATOR CUFF REPAIR TONSILLECTOMY PROCEDURE:TONSILLECTOMY Medications/Allergies: Prior to Admission medications Medication Sig Start Date End Date Taking? Authorizing Provider atorvastatin (LIPITOR) 10 mg tablet Take 1 tablet (10 mg total) by mouth every night at bedtime. 07/04/23 Yes Historical Provider, botulinum toxin Type A (BOTOX) 100 unit recon soln injection every 3 (three) months. Yes HistoricalProviderMD buPROPion SR (WELLBUTRIN SR) 200 mg 12 hr tablet Take 300 mg by mouth daily. Yes Historical Provider, cholecalciferol (VITAMIN D-3) 50 mcg (2,000 unit) capsule Take 1 capsule by mouth daily. 04/03/23 Yes Historical Provider, fluticasone propionate (FLONASE) 50 mcg/actuation nasal spray spray/apply 1 spray in each nostril daily. Yes Historical Provider, losartan (COZAAR) 50 mg tablet Take 1 tablet (50 mg total) by mouth every night at bedtime. 03/27/23Yes Historical Provider, NexIUM [address] capsule Take 1 capsule (40 mg total) by mouth 1 (one) time each day before breakfast. 02/14/24 Yes FRANK Salter dulaglutide (TRULICITY) 0.75 mg/0.5 mL pen injector injection Inject 0.5 mL (0.75 mg total) under the skin every 7 (seven) days. 04/04/24 FRANK Al rizatriptan (MAXALT-LIQUOR TESTER) 10 mg disintegrating tablet TAKE 1 TABLET BY MOUTH NEEDED FOR MIGRAINE.MAY REPEAT IN 2 HOURS IF NEEDED 01/16/24 Tess Sun MD bisacodyL (DULCOLAX) 5 mg EC tablet Take 2 tablets by mouth right before beginning bowel prep. See instructions provided by the office 03/26/24 04/04/24 FRANK Ramon esomeprazole (NexIUM) 40 mg packet Take 40 mg by mouth every morning before breakfast. 04/04/24 Historical Provider, polyethylene glycol (Golytely) 236-22.74-6.74 -5.86 gram solution Take 4L by mouth once for one dose. May substitue any PEG. Starting at 6PM the night before your procedure drink 1 8oz glasses at your own pace until you complete half of the gallon. Finish 2nd half of the gallon 5 hours before your procedure. 03/26/24 04/04/24 FRANK Ramon Patient Age:58 y.o. Vitals: Vitals: 04/09/24 1425 BP: (!) 164/81 Pulse: 78 Resp: 16 Temp: 36.4 ??C (97.5 ??F) SpO2: 100% Physical Exam: Mental Status: Clear HEENT: WNL Heart: WNL Lungs: WNL Abdomen: WNL Extremities: WNL Neuro: WNL Labs: Imaging: Diagnosis/Plan: Colonoscopy documented in this encounter Procedure Notes * Neva Swan RN - 04/09/2024 3:53 PM EST The patient tolerating PO. MD discussed results with patient. All personal belongings returned to patient. documented in this encounter Plan of Treatment Upcoming Encounters Date Type Department Care Team (Late st Contact Info) Description 07/12/2024 8:30 AM EDT Office Visit [facility] 175 [facility] [address] [place] [phone] Tess Sun MD 175 [facility] [address] [place] [phone] 08/02/2024 8:45 AM EDT Office Visit Adult Medicine [facility] [address] [place] [address] Corinne Devi MD [address] [place] [address] 12/03/2024 9:30 AM EDT Consult Bariatric Surgery - [place] 175 [facility] [address] [place] [phone] Farzana Heart PA 271 [facility] [address] [place] [address] 01/21/2025 8:45 AM EST Office Visit Pulmonolgy - [place] 175 [facility] [address] [place] [phone] Gertrude Alaniz MD 175 [facility] [address] [place] [address] documented as of this encounter Procedures Procedure Name Priority Date/Time Associated Diagnosis Comments COLONOSCOPY Routine 04/09/2024 3:44 PM EST History of colon polyps documented in this encounter Results * COLONOSCOPY Anesthesia - MAC; [facility] [[email or web address]] ENDOSCOPY (04/09/2024 3:44 PM EST) Anatomical Region Laterality Modality Endoscopy 04/09/2024 3:32 PM EST Impressions 04/09/2024 3:54 PM EST - Internal hemorrhoids. ? - The examination was otherwise normal. ? - No specimens collected. Recommendation: ?- Discharge patient to home. ? - Repeat colonoscopy in 10 years for screening ? purposes. Narrative 04/09/2024 3:54 PM EST [facility] GI Patient Name: Aden Groves Procedure Date: 04/09/2024 3:32 PM Date of : 1965 Age: 58 Gender: Male Note Status: Finalized Attending MD: Henry Madison MD, Procedure Date No Time: 04/09/2024 Procedure: ? Colonoscopy Indications: ? Screening for colorectal malignant neoplasm Providers: ? Henry Madison MD Referring MD: ?Henry Madison MD Medicines: ? Monitored Anesthesia Care Complications: ? No immediate complications. Estimated Blood Loss: ? Estimated blood loss: none. Procedure: ? Pre-Anesthesia Assessment: ? - Prior to the procedure, a History and Physical was ? performed, and patient medications and allergies were ? reviewed. The patient is competent. The risks and ? benefits of the procedure and the sedation options and ? risks were discussed with the patient. All questions ? were answered and informed consent was obtained. ? Patient identification and proposed procedure were ? verified by the physician, the nurse, the solid die cutter ? and the traffic control technician in the pre-procedure area in the ? endoscopy suite. Mental Status Examination: alert and ? oriented. Airway Examination: normal oropharyngeal ? airway and neck mobility. Respiratory Examination: ? clear to auscultation. CV Examination: normal. ? Prophylactic Antibiotics: The patient does not require ? prophylactic antibiotics. Prior Anticoagulants: The ? patient has taken no anticoagulant or antiplatelet ? agents. ASA Grade Assessment: II - A patient with mild ? systemic disease. After reviewing the risks and ? benefits, the patient was deemed in satisfactory ? condition to undergo the procedure. The anesthesia ? plan was to use monitored anesthesia care (MAC). ? Immediately prior to administration of medications, ? the patient was re-assessed for adequacy to receive ? sedatives. The heart rate, respiratory rate, oxygen ? saturations, blood pressure, adequacy of pulmonary ? ventilation, and response to care were monitored ? throughout the procedure. The physical status of the ? patient was re-assessed after the procedure. ? After I obtained informed consent, the scope was ? passed under direct vision. Throughout the procedure, ? the patient's blood pressure, pulse, and oxygen ? saturations were monitored continuously. The Olympus ? Colonoscope was introduced through the anus and ? advanced to the cecum, identified by appendiceal ? orifice and ileocecal valve. The colonoscopy was ? performed without difficulty. The patient tolerated ? the procedure well. The quality of the bowel ? preparation was excellent. Findings: ?The perianal and digital rectal examinations were ? normal. ? Internal hemorrhoids were found during retroflexion. ? The hemorrhoids were Grade I (internal hemorrhoids ? that do not prolapse). ? The exam was otherwise without abnormality. Procedure Code(s): ? --- Professional --- ? G0121, Colorectal cancer screening; colonoscopy on ? individual not meeting criteria for high risk Diagnosis Code(s): ? --- Professional --- ? Z12.11, Encounter for screening for malignant neoplasm ? of colon CPT copyright 202 [employer]. All rights reserved. The codes documented in this report are preliminary and upon employment recruiter review may be revised to meet current compliance requirements. Henry Madison MD 04/09/2024 3:54:02 PM This report has been signed electronically.Henry Madison MD Number of Addenda: 0 Note Initiated On: 04/09/2024 3:32 PM Scope Withdrawal Time: 0 hours 8 minutes 7 seconds Scope In: 3:37:01 PM Scope Out: 3:47:06 PM ? Endoscopy Department at [facility] - [address] [place] [address], ? [place] [address] Procedure Note Henry Madison MD - 04/09/2024 [facility] GI Patient Name: Aden Groves Procedure Date: 04/09/2024 3:32 PM Date of : 1965 Age: 58 Gender: Male Note Status: Finalized Attending MD: Henry Madison MD, Procedure Date No Time: 04/09/2024 Procedure: Colonoscopy Indications: Screening for colorectal malignant neoplasm Providers: Henry Madison MD Referring MD: Henry Madison MD Medicines: Monitored Anesthesia Care Complications: No immediate complications. Estimated Blood Loss: Estimated blood loss: none. Procedure: Pre-Anesthesia Assessment: - Prior to the procedure, a History and Physicalwas performed, and patient medications and allergieswere reviewed. The patient is competent. The risks and benefits of the procedure and the sedation optionsand risks were discussed with the patient. Allquestions were answered and informed consent was obtained. Patient identification and proposed procedure were verified by the physician, the nurse, theanesthetist and the traffic control technician in the pre-procedure area in the endoscopy suite. Mental Status Examination: alertand oriented. Airway Examination: normal oropharyngeal airway and neck mobility. Respiratory Examination: clear to auscultation. CV Examination: normal. Prophylactic Antibiotics: The patient does notrequire prophylactic antibiotics. Prior Anticoagulants: The patient has taken no anticoagulant or antiplatelet agents. ASA Grade Assessment: II - A patient withmild systemic disease. After reviewing the risks and benefits, the patient was deemed in satisfactory condition to undergo the procedure. The anesthesia plan was to use monitored anesthesia care (MAC). Immediately prior to administration of medications, the patient was re-assessed for adequacy to receive sedatives. The heart rate, respiratory rate, oxygen saturations, blood pressure, adequacy of pulmonary ventilation, and response to care were monitored throughout the procedure. The physical status ofthe patient was re-assessed after the procedure. After I obtained informed consent, the scope was passed under direct vision. Throughout theprocedure, the patient's blood pressure, pulse, and oxygen saturations were monitored continuously. TheOlympus Colonoscope was introduced through the anus and advanced to the cecum, identified by appendiceal orifice and ileocecal valve. The colonoscopy was performed without difficulty. The patient tolerated the procedure well. The quality of the bowel preparation was excellent. Findings: The perianal and digital rectal examinations were normal. Internal hemorrhoids were found duringretroflexion. The hemorrhoids were Grade I (internal hemorrhoids that do not prolapse). The exam was otherwise without abnormality. Procedure Code(s): --- Professional --- G0121, Colorectal cancer screening; colonoscopy on individual not meeting criteria for high risk Diagnosis Code(s): --- Professional --- Z12.11, Encounter for screening for malignantneoplasm of colon CPT copyright 2020 [employer]. All rights reserved. The codes documented in this report are preliminary and upon employment recruiter reviewmay be revised to meet current compliance requirements. Henry Madison MD 04/09/2024 3:54:02 PM This report has been signed electronically.Henry Madison MD Number of Addenda: 0 Note Initiated On: 04/09/2024 3:32 PM Scope Withdrawal Time: 0 hours 8 minutes 7 seconds Scope In: 3:37:01 PM Scope Out: 3:47:06 PM Endoscopy Department at [facility] - [address] [place] [phone] IMPRESSION: - Internal hemorrhoids. - The examination was otherwise normal. - No specimens collected. Recommendation: - Discharge patient to home. - Repeat colonoscopy in 10 years for screening purposes. us Henry Madison MD GI~PROCEDURE ORDERABLES Fin al Result documented in this encounter Visit Diagnoses Diagnosis History of colon polyps documented in this encounter Orders Discharge Count Last Ordered Date First Orde red Date DISCHARGE PATIENT 1 04/09/2024 documented in this encounter Additional Health Concerns Assessment Noted Time PHQ-9 Depression Total Score: 0 03/29/19 9:20 AM EST documented as of this encounter Care Teams Balance Recesser Relationship Specialty Start Date End Date Corinne Devi MD [address] [place] [id number] PCP - General Internal Medicine 04/04/24 documented as of this encounter
--- OUTSIDE RECORDS SUMMARY | 2024-04-27 09:53 | XMS_ITS | Encounter Summary ---
Author Organization [facility] Address [address] [place] [address] Care Team Providers Care Outbound Sales Executive Name Role Phone Corinne Devi MD Primary Care Provider [phone] Encounter Details Date Type Department Care Team (Late st Contact Info) Description 04/09/2024 3:29 PM EST Anesthesia Event [facility] Endoscopy [address] [place] [phone] Stanislav Avelar MD [address] [place] [phone] Robb Jackson MD [address] [place] [phone] Anesthesia Record Procedure Summary Procedure Name Responsible Anesthesiologist Anesthesia Start Time Anesthesia Stop Time COLONOSCOPY Stanislav Avelar MD 04/09/24 1529 04/09/24 1547 Events Date Time Event Comment 04/09/2024 1432 1526 In Room 1529 An Start 1529 An Start Data The patient wa s reevaluated immediately before moderate or deep sedation use and before anesthesia induction. 1531 Anesthesia Ready 1544 an stop data 1544 Transport to PACU/ICU Patien t reassessed and ready for transfer, airway stable. Patient transport to designated recovery area. {Transport to PACU/ICU:[id number]} 1544 Out of Room 1546 Handoff to RN I completed my handoff to the receiving nurse during which we: 1. Identified the patient 2. Identified the responsible provider 3. Reviewed the pertinent medical history 4. Discussed the surgical course 5. Reviewed intra-op anesthesia management and issues during anesthesia 6. Set expectations for post-procedure period 7. Allowed opportunity for questions and acknowledgement of understanding. 1547 An Stop Meds Name Total propofol (DIPRIVAN) injection 10 mg/mL 3 30 mg lidocaine PF (XYLOCAINE-MPF) local injec tion 2% 50 mg lactated Ringer's infusion 500 mL * Agents No agents on file. * Blood No blood administrations on file. Lines, Drains, and Airways Type Details Placement Removal Peripheral IV Placement Date: 06/28; Placement Time: 143; Catheter Size: 20 G; Orientation: Posterior, Right; Location: Hand; Site Prep: Chlorhexidine; Insertion Attempts: 1; Patient Tolerance: Tolerated well; Removal Date: 04/09/24; Removal Time: 15504/09/24 143 by Aleida Haro RN 04/09/24 155 by Neva Swan RN documented in this encounter Social History Tobacco Use Types Packs/Day Years [...] ed Within the last 3 months, ho caro many times did you visit the emergency [...] care for your loved ones. For example, child psychologist or elderly care for an older adult? [...] as of this encounter Progress Notes * Toribio Bautista CRNA - 04/09/2024 3:48 PM EST Patient: Aden Groves Jr. Procedure Summary Date: 04/09/24 Room / Location: [facility] Endoscopy Anesthesia Start: 152 Anesthesia Stop: 1546 Procedure: COLONOSCOPY Diagnosis: History of colon polyps Scheduled Providers: Henry Madison MD; Stanislav Avelar MD Responsible Provider: Stanislav Avelar MD Anesthesia Type: MAC ASA Status: 2 Anesthesia Plan: MAC Last Vitals: Vitals Value Taken Time Visit Vitals BP (!) 164/81 Pulse 78 Temp 36.4 ??C (97.5 ??F) (Tympanic) Resp 16 Ht 1.778 m (70 ) Wt 95.3 kg (210 lb) SpO2 100% BMI 30.13 kg/m?? Smoking Status Former BSA 2.13 m?? Pain Score: 6 Anesthesia Post Evaluation Patient location during evaluation: PACU Patient participation: complete - patient participated Level of consciousness: awake and alert Pain score: 0 Pain management: adequate Airway patency: patent Anesthetic complications: no Cardiovascular status: acceptable Respiratory status: acceptable Hydration status: acceptable Nausea: No Vomiting: No There were no known notable events for this encounter. * Robb Jackson MD - 04/09/2024 2:30 PM EST 58 y.o. male scheduled for History of colon polyps [COLONOSCOPY] Ht Readings from Last 1 Encounters: 04/09/24 1.778 m (70 ) Wt Readings from Last 1 Encounters: 04/09/24 95.3 kg (210 lb) Body mass index is 30.13 kg/m??. Past Medical History: Diagnosis Date Acquired deviated [...] Lumbar herniated disc 08/25/2010 DX:Lumbar herniated disc Migraines DX:Migraines Obstructive sleep apnea DX:Obstructive sleep apnea Onychomycosis 06/17/2021 DX:Onychomycosis JOHN (obstructive sleep apnea) 07/13/2015 DX:JOHN (obstructive sleep apnea); [place] [facility] [place]. Date 04/09/2016 . SE 61 % SM 73 %; spent 72 % of the study in REM. At the optimal pressure of 7; RDI 2 (AHI 0), RERAs 2; and, average oxygen saturation was 93%. For the entire study, PLMs -31. Speech or language problem 06/11/2014 DX:Speech or language problem Stroke (CMS/HCC) 1988 DX:Stroke ([facility]) Syncope and collapse 01/28/2013 DX:Syncope and collapse Vitamin D deficiency 03/14/2017 DX:Vitamin D deficiency Past Surgical History: Procedure Laterality Date APPENDECTOMY PROCEDURE:APPENDECTOMY COLONOSCOPY 07/2008 PROCEDURE: HISTORICAL COLONOSCOPY; COMMENT: [facility] - 3 mm sigmoid hyperplastic polyp, otherwise negative. COLONOSCOPY 12/18/2018 PROCEDURE: HISTORICAL COLONOSCOPY; COMMENT: Dr. Aguilar -grade 3 hemorrhoids, tortuous colon, otherwise negative. Repeat in 5 years due to fair prep. ESOPHAGOGASTRODUODENOSCOPY 07/2008 PROCEDURE: [place] ESOPHAGOGASTRODUODENOSCOPY TRANSORAL DIAGNOSTIC; COMMENT: [place] - antral gastritis, +H. pylori (treated) otherwise negative. ESOPHAGOGASTRODUODENOSCOPY 06/22/2017 PROCEDURE: [place] EGD TRANSORAL BIOPSY SINGLE/MULTIPLE; COMMENT: normal with normal esophageal and gastric biopsies FINGER TENDON REPAIR Right 02/22/2018 thumb KNEE ARTHROSCOPY Left 2012 PROCEDURE:KNEE ARTHROSCOPY KNEE SURGERY 2014 PROCEDURE: HISTORICAL KNEE SURGERY OTHER SURGICAL HISTORY 06/23/2011 PROCEDURE: [place] HEMORRHOIDECTOMY INTERNAL RUBBER BAND LIGATIONS OTHER SURGICAL HISTORY Right 02/23/2018 PROCEDURE: [place] CROSS INTRINSIC TRANSFER EACH TENDON ROTATOR CUFF REPAIR Left 2016 PROCEDURE:ROTATOR CUFF REPAIR TONSILLECTOMY PROCEDURE:TONSILLECTOMY Anesthesia complications Denies No Known Allergies Prior to Admission medications Medication Sig Start Date End Date Taking? Authorizing Provider atorvastatin (LIPITOR) 10 mg tablet Take 1 tablet (10 mg total) by mouth every night at bedtime. 07/04/23 Historical Provider, botulinum toxin Type A (BOTOX) 100 unit recon soln injection every 3 (three) months. Historical Provider, buPROPion SR (WELLBUTRIN SR) 200 mg 12 hr tablet Take 300 mg by mouth daily. Historical Provider, cholecalciferol (VITAMIN D-3) 50 mcg (2,000 unit) capsule Take 1 capsule by mouth daily. 04/03/23 Historical Provider, dulaglutide (TRULICITY) 0.75 mg/0.5 mL pen injector injection Inject 0.5 mL (0.75 mg total) under the skin every 7 (seven) days. 04/04/24 FRANK Al fluticasone propionate (FLONASE) 50 mcg/actuation nasal spray spray/apply 1 spray in each nostril daily. Historical Provider, losartan (COZAAR) 50 mg tablet Take 1 tablet (50 mg total) by mouth every night at bedtime. 03/27/23istorical Provider, NexIUM [address] capsule Take 1 capsule (40 mg total) by mouth 1 (one) time each day before breakfast. 02/14/24 FRANK Salter rizatriptan (MAXALT-TRANSPORTATION DESIGN ENGINEER) 10 mg disintegrating tablet TAKE 1 TABLET [...] before your procedure. 03/26/24 04/04/24 FRANK Ramon I have personally reviewed all the patient's medications with them prior to anesthesia. Current In-hospital Medications Social History Tobacco Use Smoking status: Former Current packs/day: 0.00 Types: Cigarettes Quit date: 12/09/1984 Years since quittin.3 Smokeless tobacco: Never Substance Use Topics Alcohol use: Never Drug use: Not Currently Types: Heroin Is the patient a current smoker (e.g. cigarette, cigar, pip, e-cigarette, or mariajuana)? Yes [] No[] Patient previously instructed to abstain from smoking on the day of procedure? Yes [] No[] Patient smoked on the day of procedure? Yes [] No[] ASPIRE smoking VBR: [] Not interested in quitting [] Interested in quitting- referred to treatment [] Interested in quitting - treatment provided Visit Vitals BP (!) 164/81 Pulse 78 Temp 36.4 ??C (97.5 ??F) (Tympanic) Resp 16 Ht 1.778 m (70 ) Wt 95.3 kg (210 lb) SpO2 100% BMI 30.13 kg/m?? Smoking Status Former BSA 2.13 m?? LABS: No results found for: WBC , HGB , HCT , MCV , PLT Lab Results Component Value Date GLUCOSE 99 04/04/2024 CALCIUM 9.8 04/04/2024 NA 137 04/04/2024 K 4.8 04/04/2024 CO2 28 04/04/2024 CL 102 04/04/2024 BUN 16 04/04/2024 CREATININE 0.95 04/04/2024 No results found for: INR , PROTIME No results found for: PTT Relevant Problems Cardio (+) Hypertension Pulmonary (+) JOHN (obstructive sleep apnea) GI (+) GERD (gastroesophageal reflux disease) Other (+) Arthritis of carpometacarpal (CMC) joint of right thumb Clinical information reviewed: Allergies Anesthesia Plan ASA 2 Anesthesia Plan: MAC Anesthesia Considerations MAC Anesthesia Risks Discussed allergic reaction, dental injury, nausea, serious complications, pain, sore throat and corneal abrasion Plan Factors Patient is not a current smoker Smoking cessation education has not been provided Induction method: intravenous Postoperative administration of opioids is intended. Anesthetic plan and risks discussed with patient. Anesthesia Plan discussed with ARMED SECURITY OFFICER. Anesthesia Evaluation History of anesthetic complications Airway Mallampati: II Thyromental distance: >3 FB Neck ROM: fullnot intubatedno noted risk Dental Pulmonary breath sounds clear to auscultation (+) sleep apnea Cardiovascular (+) hypertension Rhythm: regular Rate: normal Neuro/Psych (+) CVA residual symptoms, headaches Comments: Baseball bad to head in his 20s TBI, speech impediment, memory issues Mental Status: alert and oriented GI/Hepatic/Renal (+) GERD, chronic renal disease Endo/Other (+) diabetes mellitus Abdominal Abdomen: soft. Bowel sounds: normal. PONV RISK SCORE: 1 Vitals: 04/09/24 1425 BP: (!) 164/81 Pulse: 78 Resp: 16 Temp: 36.4 ??C (97.5 ??F) TempSrc: Tympanic SpO2: 100% Weight: 95.3 kg (210 lb) Height: 1.778 m (70 ) SpO2 Readings from Last 1 Encounters: 04/09/24 100% No results found for: WBC , RBC , HGB , HCT , PLT , MCV No Known Allergies STOP BANG: No data recorded NPO Status: Time of Last Liquid: 0600 Time of Last Solid: 1800 documented in this encounter Plan of Treatment Upcoming Encounters Date Type Department Care Team (Late st Contact Info) Description 07/12/2024 8:30 AM EDT Office Visit [facility] [place] [address] [facility] [address] [place] [phone] Tess Sun MD [address] [facility] [address] [place] [phone] 08/02/2024 8:45 AM EDT Office Visit Adult Medicine [facility] [address] [place] [phone] Corinne Devi MD [address] [place] [address] 12/03/2024 9:30 AM EDT Consult Bariatric Surgery - [place] [address] [facility] [address] [place] [phone] Farzana eHart PA [address] [facility] [address] [place] [address] 01/21/2025 8:45 AM EST Office Visit Pulmonolgy - [place] [address] [facility] [address] [place] [phone] Gertrude Alaniz MD [address] [facility] [address] [place] [address] documented as of this encounter Visit Diagnoses Not on filedocumented in this encounter Administered Medications Inactive Administered Medications - up to 3 most recent administrations Medication Order MAR Action Action Date Dose Rate Site lactated Ringer's infusion intravenous, Continuous PRN, Starting on Mon04/09/24 at 1529, Anesthesia Intraprocedure New Bag 04/09/2024 3:29 PM EST 300 mL/hr lidocaine (PF) (XYLOCAINE-MPF) 2 % injection injection, As needed, Starting on Mon04/09/24 at 1529, Anesthesia Intraprocedure Given 04/09/2024 3:31 PM EST 50 mg propofoL (DIPRIVAN) injection intravenous, As needed, Starting on Mon04/09/24 at 1531, Anesthesia Intraprocedure Given 04/09/2024 3:31 PM EST 330 mg documented in this encounter Additional Health Concerns Assessment Noted Time PHQ-9 Depression Total Score: 0 03/29/19 9:20 AM EST documented as of this encounter Care Teams Outbound Sales Executive Relationship Specialty Start Date End Date Corinne Devi MD [address] [place] [address] PCP - General Internal Medicine 04/04/24 documented as of this encounter
--- OUTSIDE RECORDS SUMMARY | 2024-04-27 09:53 | XMS_ITS | Encounter Summary ---
Author Organization [facility] Address [address] [place] [address] Care Team Providers Care Scuba Diver Name Role Phone Corinne Devi MD Primary Care Provider [phone] Reason for Referral * Medications - Pending Review Specialty Diagnoses / Procedures Referred By Migel branch Referred To Contact Diagnoses Type 2 diabetes mellitus with peripheral vascular disease (CMS/HCC) Rebecca Murphy PA [address] [place] [address] Phone: tel: fax: Referral ID Status Reason Start Date Expiration Date V isits Requested Visits Authorized [id number] Pending Review 1 1 Reason for Visit * Reason Comments Hypertension Follow-up Encounter Details Date Type Department Care Team (Late st Contact Info) Description 04/04/2024 9:30 AM EST Office Visit Adult Medicine [address] [phone] Rebecca Murphy PA [address] [place] [id number] Type 2 diabetes mellitus with peripheral vascular disease (CMS/HCC) (Primary Dx); Hypercholesterolemia ; Primary hypertension; JOHN (obstructive sleep apnea); Vitamin D deficiency; Gastroesophageal reflux disease, unspecified whether esophagitis present; Current severe episode of major depressive disorder without psychotic features, unspecified whether recurrent (CMS/HCC) Social History Tobacco Use Types Packs/Day Years Used Date Smoking Tobacco: Former Cigarettes Q uit: 12/09/1984 Smokeless Tobacco: Never Tobacco Cessation:Counseling Given: Not Answered Alcohol Use Standard Drinks/Week Comments Never 0 [...] for your loved ones. For example, child day care teacher or elderly care for an older [...] Sign Reading Time Taken Comments Blood Pressure 126/78 04/04/2024 9:32 AM EST Pulse 69 04/04/2024 9:32 AM EST Temperature 36.4 ??C (97.6 ??F) 04/04/2024 9:32 AM ES T Respiratory Rate 16 04/04/2024 9:32 AM EST Oxygen Saturation - - Inhaled Oxygen Concentration - - Weight 95.3 kg (210 lb) 04/04/2024 9:32 AM EST Height 177.8 cm (5' 10 ) 04/04/2024 9:32 AM EST Body Mass Index 30.13 04/04/2024 9:32 AM EST documented in this encounter Ordered Prescriptions Prescription Sig Dispense Quantity Refills Last Filled Start Date End Date dulaglutide (TRULICITY) 0.75 mg/0.5 mL pen injector injectionIndication s:Type 2 diabetes mellitus with peripheral vascular disease (CMS/HCC) Inject 0.5 mL (0.75 mg total) under the skin every 7 (seven) days. 6 mL 04/04/2024 documented in this encounter Progress Notes * Nicole Groves MA - 04/04/2024 9:30 AM EST * FRANK Al - 04/04/2024 9:30 AM EST CHIEF COMPLAINT: Hypertension and Follow-up IDENTIFIER: Aden Groves Jr. is a 58 y.o. old male. I have obtained verbal consent from Aden Groves JrKimberly prior to the recording. I have advised Rob Teran that she may refuse the recording and require the recording to be turned off at any time during this encounter. History of Present Illness Type II diabetes: Need updated labs. Most recent A1c of 7.0%. Patient does not take antiglycemics. Reports following with ophthalmology (need records). Also reports previous evaluation by Dr. Raines (podiatry). Hypertension: Well-controlled today. Patient reports home blood pressure readings have fluctuated with systolic values of 130 to 159 mmHg. He continues with losartan 50 mg daily. Hyperlipidemia: Most recent lipid profile with mildly elevated LDL of 86 and goal being less than 70. Patient continues with atorvastatin 10 mg daily. GERD: She adheres to a low-acid diet and takes esomeprazole (Nexium) every morning, although she occasionally skips doses due to concerns about long-term use. Migraines: Reportedly stable. Patient continues following with Dr. Sun managing onabotulinumtoxinA (Botox) treatments and rizatriptan (Maxalt). Next appointment pending 04/10/24. Obstructive sleep apnea: Patient reports compliance with CPAP machine nightly. Vitamin D deficiency: Most recent vitamin D level 56. Patient reports taking 2000 units daily. Depression: Patient reports symptoms are stable with Wellbutrin managed by Dr. Fitzgerald or Dr. Frost from [facility]. Obesity: The patient has been attempting to lose 30 pounds over the past year through regular exercise but has not achieved goal. He expresses interest in weight management options, including pharmacological interventions, but is not considering surgical options. He has no personal history of pancreatitis; denies family history of medullary thyroid cancer or MENs. Patient is declining pneumococcal immunization which is offered and recommended today. Results --//-- ROS: GENERAL: No fever, shaking chills RESPIRATORY: No shortness of breath CARDIOVASCULAR: No chest pain GI: As above NEURO: No persistent headache PSYCH: No homicidal/suicidal ideation PAST MEDICAL HISTORY: Patient Active Problem List Diagnosis Date Noted Arthritis of carpometacarpal (CMC) joint of right thumb 04/05/2024 Onychomycosis 06/17/2021 Hypogonadism male 05/12/2020 Type 2 diabetes mellitus with peripheral vascular disease (CMS/HCC) 01/17/2020 Chronic bilateral low back pain without sciatica 10/04/2018 Overweight (BMI 25.0-29.9) 07/13/2018 Restrictive pattern present on pulmonary function testing 07/13/2018 Vitamin D deficiency 03/14/2017 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 pylori infection 07/18/2008 Past Surgical History: Procedure Laterality Date APPENDECTOMY PROCEDURE:APPENDECTOMY COLONOSCOPY 07/2008 PROCEDURE: HISTORICAL COLONOSCOPY; COMMENT: [place] - 3 mm sigmoid hyperplastic polyp, otherwise negative. COLONOSCOPY 12/18/2018 PROCEDURE: HISTORICAL COLONOSCOPY; COMMENT: Dr. Aguilar -grade 3 hemorrhoids, tortuous colon, otherwise negative. Repeat in 5 years due to fair prep. ESOPHAGOGASTRODUODENOSCOPY 07/2008 PROCEDURE: [place] ESOPHAGOGASTRODUODENOSCOPY TRANSORAL DIAGNOSTIC; COMMENT: [place] - antral gastritis, +H. pylori (treated) otherwise negative. ESOPHAGOGASTRODUODENOSCOPY 06/22/2017 PROCEDURE: [place] EGD TRANSORAL BIOPSY SINGLE/MULTIPLE; COMMENT: normal with normal esophageal and gastric biopsies FINGER TENDON REPAIR Right 02/22/2018 thumb KNEE ARTHROSCOPY Left 2012 PROCEDURE:KNEE ARTHROSCOPY KNEE SURGERY 2014 PROCEDURE: HISTORICAL KNEE SURGERY OTHER SURGICAL HISTORY 06/23/2011 PROCEDURE: [place] HEMORRHOIDECTOMY INTERNAL RUBBER BAND LIGATIONS OTHER SURGICAL HISTORY Right 02/23/2018 PROCEDURE: [place] CROSS INTRINSIC TRANSFER EACH TENDON ROTATOR CUFF REPAIR Left 2016 PROCEDURE:ROTATOR CUFF REPAIR TONSILLECTOMY PROCEDURE:TONSILLECTOMY SOCIAL HISTORY: Social History Tobacco Use Smoking status: Former Current packs/day: 0.00 Types: Cigarettes Quit date: 12/09/1984 Years since quittin.3 Smokeless tobacco: Never Substance Use Topics Alcohol use: Never FAMILY HISTORY: Family History Problem Relation Name Age of Onset Heart attack Mother 30.00 Cirrhosis Father Hypertension Sister dm Breast cancer Paternal Grandmother 62.00 DM Prostate cancer Uncle 57.00 Paternal Breast cancer Mother's side 68.00 Great Aunt Heart disease Mother Family Status Relation Name Status Mother Father Sister Alive PGM Uncle (Not Specified) Mother's stas (Not Specified) No partnership data on file MEDICATIONS DISCONTINUED/REORDERED: Medications Discontinued During This Encounter Medication Reason polyethylene glycol (Golytely) 236-22.74-6.74 -5.86 gram solution Therapy completed bisacodyL (DULCOLAX) 5 mg EC tablet Therapy completed esomeprazole (NexIUM) 40 mg packet ACTIVE MEDICATIONS: Outpatient Medications Marked as Taking for the 04/04/24 encounter (Office Visit) with FRANK Al Medication Sig Dispense Refill atorvastatin (LIPITOR) 10 mg tablet Take 1 tablet (10 mg total) by mouth every night at bedtime. botulinum toxin Type A (BOTOX) 100 unit recon soln injection every 3 (three) months. buPROPion SR (WELLBUTRIN SR) 200 mg 12 hr tablet Take 300 mg by mouth daily. cholecalciferol (VITAMIN D-3) 50 mcg (2,000 unit) capsule Take 1 capsule by mouth daily. fluticasone propionate (FLONASE) 50 mcg/actuation nasal spray spray/apply 1 spray in each nostril daily. losartan (COZAAR) 50 mg tablet Take 1 tablet (50 mg total) by mouth every night at bedtime. NexIUM [address] capsule Take 1 capsule (40 mg total) by mouth 1 (one) time each day before breakfast. rizatriptan (MAXALT-TOP FRAME FITTER) 10 mg disintegrating tablet TAKE 1 TABLET BY MOUTH NEEDED FOR MIGRAINE.MAY REPEAT IN 2 HOURS IF NEEDED 10 tablet 3 [DISCONTINUED] bisacodyL (DULCOLAX) 5 mg EC tablet Take 2 tablets by mouth right before beginning bowel prep. See instructions provided by the office 2 tablet 0 [DISCONTINUED] esomeprazole (NexIUM) 40 mg packet Take 40 mg by mouth every morning before breakfast. [DISCONTINUED] polyethylene glycol (Golytely) 236-22.74-6.74 -5.86 gram solution Take 4L by mouth once for one dose. May substitue any PEG. Starting at 6PM the night before your procedure drink 1 8ozglasses at your own pace until you complete half of the gallon. Finish 2nd half of the gallon 5 hours before your procedure. 4000 mL 0 ALLERGIES: No Known Allergies PHYSICAL EXAM: Visit Vitals BP 126/78 Pulse 69 Temp 36.4 ??C (97.6 ??F) (Temporal) Resp 16 Ht 1.778 m (70 ) Wt 95.3 kg (210 lb) BMI 30.13 kg/m?? Smoking Status Former BSA 2.13 m?? Wt Readings from Last 5 Encounters: 04/09/24 95.3 kg (210 lb) 04/05/24 95.3 kg (210 lb) 04/04/24 95.3 kg (210 lb) 03/15/24 93 kg (205 lb) 01/22/24 96.5 kg (212 lb 12.8 oz) BMI is greater than 25.0 (above the normal range) - see Plan Physical Exam APPEARANCE: Alert, obese, and in no acute distress HEART: RRR with normal S1 and S2, no murmurs, no gallops LUNG: Bilateral lung almanzar clear to auscultation throughout LABS: Orders Placed This Encounter Procedures Microalbumin creatinine urine ratio Comprehensive metabolic panel Hemoglobin A1c IMAGING: None IMPRESSION: 1. Type 2 diabetes mellitus with peripheral vascular disease ([facility]) 2. Hypercholesterolemia 3. Primary hypertension 4. JOHN (obstructive sleep apnea) 5. Vitamin D deficiency 6. Gastroesophageal reflux disease, unspecified whether esophagitis present 7. Current severe episode of major depressive disorder without psychotic features, unspecified whether recurrent ([facility]) Assessment & Plan Type II diabetes: - Ordered updated labs - Patient expresses interest in GLP-1 agonist to promote weight loss - Patient encouraged to contact insurance company to determine coverages - Will send prescription for Trulicity which will be increased in 4 weeks, if covered - Follow back with PCP in 4 months with labs beforehand Hypertension: - At goal, continue losartan 50 mg daily - Low-sodium diet and weight loss remain baseline recommendations Hyperlipidemia: - Will continue monitoring lipid profile - Continue atorvastatin 10 mg daily - Weight loss and low-fat diet remain baseline recommendations Migraines: - Continue following with Dr. Sun managing Botox treatments and Maxalt (rizatriptan) Depression: -Reportedly stable, continue following with [facility] psychiatry managing Wellbutrin GERD: - On Nexium daily, occasionally skips doses -Recommended a low-acid diet Obesity: Needs improvement; current Body mass index is 30.13 kg/m??. with goal of <25. We discussed relationship between weight and diabetes,, JOHN, GERD, hypertension and hyperlipidemia and patient understands these conditions would improve with weight loss. Encouraged calorie restriction (<1500 shala/day x 6 months), increased water intake (>64 oz/day), and exercise as tolerated (ideally 30 min/day, 5x per week). See notes above regarding GLP-1 agonist. Obstructive sleep Apnea: -Continue CPAP machine at night Vitamin D deficiency: -Ordered updated labs, continue 2000 units daily well living in the [facility] Medication and lab orders: Orders Placed This Encounter Procedures Microalbumin creatinine urine ratio Comprehensive metabolic panel Hemoglobin A1c Other orders: None FRANK Al on 04/09/2024 at 4:43 PM EST [id number] is applicable to this visit as the primary care provider (PCP) office dealing with list the conditions noted/billed above are complex requiring extensive management/work up associated with longitudinal care of this patient. This patient???s serious/complex conditions may also require several consultants needing management/coordination through PCP office. This note was dictated using voice recognition software. Please pardon any grammatical or syntax errors. documented in this encounter Plan of Treatment Upcoming Encounters Date Type Department Care Team (Late st Contact Info) Description 07/12/2024 8:30 AM EDT Office Visit [facility] [place] [address] [facility] [address] [place] [phone] Tess Sun MD [address] [facility] [address] [place] [phone] 08/02/2024 8:45 AM EDT Office Visit Adult Medicine [facility] [address] [place] [address] Corinne Devi MD [address] [place] [address] 12/03/2024 9:30 AM EDT Consult Bariatric Surgery - [place] [address] [facility] [address] [place] [phone] Farzana Heart PA [address] [facility] [address] [place] [address] 01/21/2025 8:45 AM EST [facility] [address] [facility] [address] [place] [address] Gertrude Alaniz MD [address] [facility] [address] [place] [address] documented as of this encounter Results * Hemoglobin A1c (04/04/2024 10:50 AM EST) Pathologist [facility] Hemoglobin A1C 6.3 <6.5 % LAB CHEMISTRY METHOD 04/04/2024 2:21 PM EST [facility] Mean Bld Glu Estim. 134 mg/dL LAB CHEMISTRY METHOD 04/04/2024 2:21 PM EST [facility] Blood Venous blood specimen / Unknown Venipuncture / Unknown 04/04/2024 10:50 AM EST 04/04/2024 10:50 AM EST us Rebecca MARIE LAB BLOOD ORDERABLES Final Re sult [facility] [address] [place] [address], * Comprehensive metabolic panel (04/04/2024 10:50 AM EST) [facility] Sodium 137 133 - 145 mmol/L LAB CHEMISTRY METHOD 04/04/2024 3:49 PM EST [facility] Potassium 4.8 3.5 - 5.5 mmol/L LAB CHEMISTRY METHOD 04/04/2024 3:49 PM EST [facility] Chloride 102 96 - 110 mmol/L LAB CHEMISTRY METHOD 04/04/2024 3:49 PM EST [facility] CO2 28 21 - 32 mmol/L LAB CHEMISTRY METHOD 04/04/2024 3:49 PM EST [facility] Anion Gap 7 3 - 11 LAB CHEMISTRY METHOD 04/04/2024 3:49 PM [facility] Glucose 99 70 - 100 mg/dL LAB CHEMISTRY METHOD 04/04/2024 3:49 PM [facility] BUN 16 5 - 25 mg/dL LAB CHEMISTRY METHOD 04/04/2024 3:49 PM [facility] Creatinine 0.95 0.70 - 1.30 mg/dL LAB CHEMISTRY METHOD 04/04/2024 3:49 PM [facility] eGFR 92 >=60 mL/min/1. 73m2 LAB CHEMISTRY METHOD 04/04/2024 3:49 PM [facility] Comment:Calculation based on the??Chronic Kidney Disease Epidemiology Collaboration (CKD-EPI) equation refit??without adjustment for race. BUN/Creatinine Ratio 16.8 LAB CHEMISTRY METHOD 04/04/2024 3:49 PM [facility] Calcium 9.8 8.5 - 10.5 mg/dL LAB CHEMISTRY METHOD 04/04/2024 3:49 PM [facility] AST (SGOT) 27 10 - 42 unit/L LAB CHEMISTRY METHOD 04/04/2024 3:49 PM [facility] ALT (SGPT) 38 10 - 60 unit/L LAB CHEMISTRY METHOD 04/04/2024 3:49 PM [facility] Alkaline Phosphatase 67 42 - 121 unit/L LAB CHEMISTRY METHOD 04/04/2024 3:49 PM [facility] Total Protein 7.7 6.0 - 8.0 g/dL LAB CHEMISTRY METHOD 04/04/2024 3:49 PM [facility] Albumin 4.6 3.2 - 5.0 g/dL LAB CHEMISTRY METHOD 04/04/2024 3:49 PM [facility] Total Bilirubin 0.4 0.0 - 1.4 mg/dL LAB CHEMISTRY METHOD 04/04/2024 3:49 PM [facility] Blood Venous blood specimen / Unknown Venipuncture / Unknown 04/04/2024 10:50 AM EST 04/04/2024 10:50 AM EST us Rebecca MARIE LAB BLOOD ORDERABLES Final Re sult Performing Organization Address [facility]/ZIP Co de Phone Number [facility] [address] [place] [address], [place] [phone] * (ABNORMAL) Microalbumin creatinine urine ratio (04/04/2024 10:50 AM EST) Creatinine, Urine 238.0 mg/dL LAB CHEMISTRY METHOD 04/04/2024 1:27 PM EST [facility] Microalb, Ur 40.9(H) 0.0 - 29.0 mg/L LAB CHEMISTRY METHOD 04/04/2024 1:27 PM EST [facility] Microalb/Crea t Ratio 17 <30 mg/g creat LAB CHEMISTRY METHOD 04/04/2024 1:27 PM EST [facility] Urine Urine specimen from urethra / Unknown Non-blood Collection / Unknown 04/04/2024 10:50 AM EST 04/04/2024 10:50 AM EST us Rebecca MARIE LAB URINE ORDERABLES Final Re sult Performing Organization Address [facility] Co de Phone Number [facility] [address] [place] [address], [place] [phone] documented in this encounter Visit Diagnoses Diagnosis Type 2 diabetes mellitus with peripheral vascular disease (CMS/HCC)- Primary Hypercholesterolemia Pure hypercholesterolemia Primary hypertension Unspecified essential hypertension JOHN (obstructive sleep apnea) Obstructive sleep apnea (adult) (pediatric) Vitamin D deficiency Gastroesophageal reflux disease, unspecified whether esophagitis present Current severe episode of major depressive disorder without psychotic features, unspecified whether recurrent (CMS/HCC) documented in this encounter Discontinued Medications Medication Sig Discontinue Reason Start Date End Da te polyethylene glycol (Golytely) 236-22.74-6.74 -5.86 gram solution Take 4L by mouth once for one dose. May substitue any PEG. Starting at 6PM the night before your procedure drink 1 8oz glasses at your own pace until you complete half of the gallon. Finish 2nd half of the gallon 5 hours before your procedure. Therapy completed 03/26/2024 04/04/2024 bisacodyL (DULCOLAX) 5 mg EC tablet Take 2 tablets by mouth right before beginning bowel prep. See instructions provided by the office Therapy completed 03/26/2024 04/04/2024 esomeprazole (NexIUM) 40 mg packet Take 40 mg by mouth every morning before breakfast. 04/04/2024 documented as of this encounter Historical Medications * This list may reflect changes made after this encounter. NexIUM [address] capsule Take 1 capsule (40 mg total) by mouth 1 (one) time each day before breakfast. 02/14/2024 added in this encounter Additional Health Concerns Assessment Noted Time PHQ-9 Depression Total Score: 0 03/29/19 9:20 AM EST documented as of this encounter Care Teams Scuba Diver Relationship Specialty Start Date End Date Corinne Devi MD [address] [place] [address] PCP - General Internal Medicine 04/04/24 documented as of this encounter
--- OUTSIDE RECORDS SUMMARY | 2024-04-27 09:53 | XMS_ITS | Clinical Summary ---
Author Organization [facility] Address [address] [place] [address] Care Team Providers Care Lens Gauger Name Role Phone Hector Perry MD Primary Care Provider [phone] Allergies No known active allergies Medications Medication Sig Dispensed Refills Start Date End Date Status esomeprazole (NexIUM) 40 MG packet Take 40 mg by mouth every morning before breakfast. 0 Active buPROPion (Wellbutrin SR) 200 MG 12 hr tablet Take 300 mg by mouth daily. 0 Active fluticasone (FLONASE) 50 MCG/ACT nasal spray spray/apply 1 spray in each nostril daily. 0 Active botulinum toxin type A (BOTOX) 100 units SOLR injection every 3 (three) months. 0 Active losartan (COZAAR) tablet 50 mg Take 1 tablet (50 mg total) by mouth every night at bedtime. 0 03/27/2023 Active Cholecalciferol (Vitamin D) 50 MCG (2000 UT) CAPS Take 1 capsule by mouth daily. 0 04/03/2023 Active atorvastatin (LIPITOR) tablet 10 mg Take 1 tablet (10 mg total) by mouth every night at bedtime. 0 07/04/2023 Active rizatriptan (MAXALT-PAI GOW MANAGER) 10 MG disintegrating tablet Take 1 tablet (10 mg total) by mouth as needed for migraine. May repeat in 2 hours if needed 10 tablet 0 12/13/2023 Active Family History Medical History Relation Name Comments Cirrhosis Father Heart disease Mother Relation Name Status Comments Father Mother Social History Tobacco Use Types Packs/Day Years Used Date Smoking Tobacco: Former Cigarettes Q uit: 12/09/1984 Smokeless Tobacco: Never Tobacco Cessation:Counseling Given: Not Answered Alcohol Use Standard Drinks/Week Comments Never 0 (1 standard drink = 0.6 oz pur e alcohol) Sex and Gender Information Value Date Recorded Sex Assigned at Male 09/15/2023 8:51 AM EDT Gender Identity Not on file Sexual Orientation Not on file Job Start Date Occupation Industry Not on file Not on file Not on file Last Filed Vital Signs Vital Sign Reading Time Taken Comments Blood Pressure 150/91 12/13/2023 8:35 AM EDT Pulse 69 12/13/2023 8:35 AM EDT Temperature 36 ??C (96.8 ??F) 12/13/2023 8:35 AM EDT Respiratory Rate - - Oxygen Saturation 98% 09/15/2023 8:59 AM EDT Inhaled Oxygen Concentration - - Weight 93.4 kg (206 lb) 12/13/2023 8:35 AM EDT Height 177.8 cm (5' 10 ) 12/13/2023 8:35 AM EDT Body Mass Index 29.56 12/13/2023 8:35 AM EDT Plan of Treatment Health Maintenance Due Date Last Done Comments Hepatitis B Vaccines (1 of 3 - 3-dose series) 1964 Hepatitis C Screening 1964 COVID-19 Vaccine (#1) 05/30/1965 Depression Screening 1976 BMI Counseling 1982 Preventative Health Evaluation 1982 Colon Cancer Screening (Colonoscopy) 2009 Influenza Vaccine (#1) 2023 , 11/05/2021, 11/08/2020, Additional history exists DTap / Tdap / Td (3 - Td or Tdap) 12/22/2030 12/22/2020, 08/16/2010 Pneumococcal Vaccine Aged Out 03/12/2020 No long er eligible based on patient's age to complete this topic Shingrix-Zoster Vaccine Completed 06/08/2022, 01/21 RSV Ped < 20 months Aged Out No longe r eligible based on patient's age to complete this topic Care Teams Lens Gauger Relationship Specialty Start Date End Date Hector Perry MD [address] [place] [address] PCP - General Internal Medicine 12/11/20
--- OUTSIDE RECORDS SUMMARY | 2024-04-27 09:53 | XMS_ITS | Encounter Summary ---
Author Organization [facility] Address [address] [place] [address] Care Team Providers Care Apiculture Teacher Name Role Phone Hector Perry MD Primary Care Provider [phone] Encounter Details Date Type Department Care Team (Late st Contact Info) Description 12/13/2023 8:26 AM EDT Hospital Encounter TH HISTORIC ENCOUNTERS EASTERN CONVERSION ONLY Tess Sun MD [address] [phone] Social History Tobacco Use Types Packs/Day Years [...] your loved ones. For example, early childhood or elderly care for an older adult? [...] maximum 5 days headache in Novemberit was 7/ , before botox it was 25 days [...] Migraines ??? Obstructive sleep apnea ??? St[facility] ([facility] 1988 Current Outpatient Medications Medication Sig Dispense Refill ??? atorvastatin (LIPITOR) tablet 10 mg Take 1 tablet (10 mg total) by mouth every night at bedtime. ??? botulinum toxin type A (BOTOX) 100 units SOLR injection every 3 (three) months. ??? buPROPion (Wellbutrin SR) 200 MG 12 hr tablet Take 300 mg by mouth daily. ??? Cholecalciferol (Vitamin D) 50 MCG (2000 UT) [...] 30 minutes. The majority of the actual [id number] visit was spent counseling the patient with respect to the current neurological picture. Tess Sun MD documented in this encounter Plan of Treatment Upcoming Encounters Date Type Department Care Team (Late st Contact Info) Description 07/12/2024 8:30 AM EDT Office Visit [facility] [place] [address] [place] [phone] Tess Sun MD [address] [place] [phone] 08/02/2024 8:45 AM EDT Office Visit Adult Medicine [facility] [address] [place] [phone] Corinne Devi MD [address] [place] [address] 12/03/2024 9:30 AM EDT Consult Bariatric Surgery - [place] [address] [facility] [address] [place] [phone] [facility] [address] [facility] [address] [place] [address] 01/21/2025 8:45 AM EST Office Visit Pulmonolgy - [place] [address] [place] [phone] Gertrude Alaniz MD [address] [facility] [address] [place] [address] documented as of this encounter Visit Diagnoses Not on filedocumented in this encounter Care Teams Apiculture Teacher Relationship Specialty Start Date End Date Hector Perry MD [address] [place] [address] PCP - General 12/13/23 04/03/24 documented as of this encounter
--- OUTSIDE RECORDS SUMMARY | 2024-04-27 09:53 | XMS_ITS | Clinical Summary ---
Author Organization [facility] Address [address] [place] [phone] Phone Care Team Providers Care Sneller Hand Name Role Phone Corinne Devi MD Primary Care Provider [phone] Allergies No known active allergies Medications atorvastatin (LIPITOR) 10 mg tablet Take 1 tablet (10 mg total) by mouth every night at bedtime. Active botulinum toxin Type A (BOTOX) 100 unit recon soln injection every 3 (three) months. Active buPROPion SR (WELLBUTRIN SR) 200 mg 12 hr tablet Take 300 mg by mouth daily. Active fluticasone propionate (FLONASE) 50 mcg/actuation nasal spray spray/apply 1 spray in each nostril daily. Active losartan (COZAAR) 50 mg tablet Take 1 tablet (50 mg total) by mouth every night at bedtime. Active rizatriptan (MAXALT-MEDICAL CARE ADMINISTRATOR) 10 mg disintegrating tablet TAKE 1 TABLET BY MOUTH NEEDED FOR MIGRAINE. MAY REPEAT IN 2 HOURS IF NEEDED 10 tablet [address] Active [address] capsule Take 1 capsule (40 mg total) by mouth 1 (one) time each day before breakfast. 024 Active dulaglutide (TRULICITY) 0.75 mg/0.5 mL pen injector injectionIndicati ons:Type 2 diabetes mellitus with peripheral vascular disease (CMS/HCC) Inject 0.5 mL (0.75 mg total) under the skin every 7 (seven) days. 6 mL 025 Active cholecalciferol (VITAMIN D-3) 50 mcg (2,000 unit) capsule Take 1 capsule (2,000 Units total) by mouth 1 (one) time each day. 90 capsule 1 025 Active cholecalciferol (VITAMIN D-3) 50 mcg (2,000 unit) capsule Take 1 capsule by mouth daily. 024 2024 Discontinued esomeprazole (NexIUM) 40 mg packet Take 40 mg by mouth every morning before breakfast. 2024 Discontinued polyethylene glycol (Golytely) 236-22.74-6.74 -5.86 gram solution Take 4L by mouth once for one dose. May substitue any PEG. Starting at 6PM the night before your procedure drink 1 8oz glasses at your own pace until you complete half of the gallon. Finish 2nd half of the gallon 5 hours before your procedure. 4000 mL 025 2024 Discontinued(T herapy completed) bisacodyL (DULCOLAX) 5 mg EC tablet Take 2 tablets by mouth right before beginning bowel prep. See instructions provided by the office 2 tablet 025 2024 Discontinued(T herapy completed) Hospital, Clinic, or Other Facility Administered Medication Ordered Dose Route Frequency Start Date End Date Status triamcinolone acetonide (KENALOG-40) 40 mg/mL injection 20 mgIndications:Arthriti s of carpometacarpal (CMC) joint of right thumb 20 mg IAtc Once PRN Procedure 04/05/2024 04/05/2024 Ended onabotulinumtoxinA (BOTOX) 200 unit injection 200 UnitsIndications:Chron ic migraine with aura without status migrainosus, not intractable 200 Units IM Once 04/10/2024 04/10/2024 Ended onabotulinumtoxinA (BOTOX) 200 unit injection 200 UnitsIndications:Chron ic migraine with aura without status migrainosus, not intractable 200 Units IM Once 04/10/2024 04/10/2024 Ended Active Problems Problem Noted Date Diagnosed Date Arthritis of carpometacarpal (CMC) joint of righ t thumb 04/05/2024 Onychomycosis 06/17/2021 Hypogonadism male 05/12/2020 Overview (01/25/2024): Sees urology Type 2 diabetes mellitus with peripheral vascula r disease 01/17/2020 Overview (01/25/2024): ED Chronic bilateral low back pain without sciatica 10/04/2018 Obesity (BMI 30.0-34.9) 07/13/2018 Vitamin D deficiency 03/14/2017 Bipartite patella 07/12/2016 Overview (01/25/2024): Surgical repair 2014 Hypercholesterolemia 07/12/2016 MCI (mild cognitive impairment) 07/13/2015 JOHN (obstructive sleep apnea) 07/13/2015 Overview (01/25/2024): [facility] Polysomnogram treatment study. Date 04/09/2016 . SE 61 % SM 73 %; spent 72 % of the study in REM. At the optimal pressure of 7; RDI 2 (AHI 0), RERAs 2; and, average oxygen saturation was 93%. For the entire study, PLMs ~31. [facility] Home Polysomnogram: Date 07/17/2017; AHI 15, Unclassified apneas 0; Obstructive apneas 9; Central apneas 0; Mixed apneas 0; hypopneas 102; average oxygen saturation 95% (lowest 84% without saturations <88% for 5% or more of study) [facility] home sleep test 07/15/2021; weight 215; BMI 31. AHI 12. 4 obstructive apneas and 89 hypopneas. Average oxygen saturation 95% with oxygen som 59%. - Obstructive Sleep Apnea - moderate; mostly hypopneas; without sleep related hypoventilation by 2018 home polysomnogram. -Obstructive sleep apnea mild with mostly hypopneas and obstructive apneas without nocturnal hypoxemia based on 2018 home sleep test. Left rotator cuff tear 04/27/2015 Overview (01/25/2024): MRI 04/15/[address] Piero Parra (done at [facility]) Fibromyalgia 09/18/2014 Complex renal cyst 10/10/2013 Depression 09/13/2011 Hearing loss 08/09/2011 Hypertension 08/09/2011 DDD (degenerative disc disease), lumbar 08/26/19 11 GERD (gastroesophageal reflux disease) 1 Hernia, inguinal, bilateral 08/16/2010 H. pylori infection 07/18/2008 Overview (01/25/2024): [place] - Treated with Pylera & Prilosec x 10 days. Resolved Problems Problem Noted Date Diagnosed Date Resolved Date Restrictive pattern present on pulmonary function testing 07/13/2018 04/09/2024 Encounters Date Type Department Care Team Description 04/10/2024 8:50 AM EST [facility] visit [facility] [address] [facility] [address] [place] [phone] Tess Sun MD Chronic migraine with aura without status migrainosus, not intractable (Primary Dx) 04/09/2024 3:29 PM EST Anesthesia Event [facility] [address] [place] [phone] Stanislav Avelar MD Saliga, Jesse L, MD 04/09/2024 2:02 PM EST - 04/09/2024 11:59 PM EST Hospital Encounter [facility] [address] [place] [phone] Henry Madison MD Spencer, Mark A, MD History of colon polyps Discharge Disposition: Home or Self Care 04/05/2024 10:15 AM EST Office Visit Orthopedic Surgery [facility] [address] [facility] [address] [place] [phone] Aleida Iglesias MD Arthritis of carpometacarpal (CMC) joint of right thumb (Primary Dx) 04/04/2024 9:30 AM EST Office Visit Adult Medicine [address] [phone] Rebecca Murphy PA Type 2 diabetes mellitus with peripheral vascular disease (CMS/HCC) (Primary Dx); Hypercholesterolemia; Primary hypertension; JOHN (obstructive sleep apnea); Vitamin D deficiency; Gastroesophageal reflux disease, unspecified whether esophagitis present; Current severe episode of major depressive disorder without psychotic features, unspecified whether recurrent (CMS/HCC) 03/15/2024 9:00 AM EST Office Visit [facility] [address] [place] [address] Yudith Soares PA Chronic migraine with aura without status migrainosus, not intractable (Primary Dx) from Last 3 Months Immunizations Name Administration Dates Next Due Influenza Quadravalent, MDCK , 0.5ml, preservative free (Flucelvax) 6mo and older 11/11/2022,11/05/2021,11/26/2017 Influenza Quadravalent, MDCK , 0.5ml, with preservative (Flucelvax) 6mo and older 11/27/2016 Influenza Quadrivalent, 0.5m l, preservative free (Fluarix; FluLaval; Fluzone) ages 6mo and older (Afluria) 3yo and older 11/08/2020,12/09/2018 Influenza trivalent, MDCK, 0 .5mL, preservative free (Flucelvax) 6mo and older 11/25/2023 Influenza trivalent, with pr eservative (Fluzone; Afluria) 6mo and older 11/02/2019,12/01/2015,11/20/2014,12/24,11/13/2012,12/07/2011,12/02/2010 Moderna SARS-CoV-2 COVID-19, mRNA, LNP-S, preservative free 06/12/2020 Pneumococcal polysaccharide 23 valent (Pneumovax 23) 2yo and older 03/12/2020 Tdap Tetanus diptheria acell ular pertussis (Boostrix; Adacel) 7yo and older 12/22/2020,08/16/2010 Zoster recombinant (Shingrix ) 19yo and older 06/08/2022,01/21/2022 Surgical History Surgery Date Site/Laterality Comments ESOPHAGOGASTRODUODENOSCOPY 07/2008 PROCEDURE: [place] ESOPHAGOGASTRODUODENOSCOPY TRANSORAL DIAGNOSTIC; COMMENT: [place] - antral gastritis, + H. pylori (treated) otherwise negative. OTHER SURGICAL HISTORY 06/23/2011 PROCEDURE: NV HEMORRHOIDECTOMY INTERNAL RUBBER BAND LIGATIONS COLONOSCOPY 07/2008 PROCEDURE: HISTORICAL COLONOSCOPY; COMMENT: [place] - 3 mm sigmoid hyperplastic polyp, otherwise negative. KNEE SURGERY 2013 PROCEDURE: HISTORICAL KNEE SURGERY ESOPHAGOGASTRODUODENOSCOPY 06/22/2017 PROCEDURE: NV EGD TRANSORAL BIOPSY SINGLE/MULTIPLE; COMMENT: normal with normal esophageal and gastric biopsies OTHER SURGICAL HISTORY 02/23/2018 Right PROCEDURE: NV CROSS INTRINSIC TRANSFER EACH TENDON COLONOSCOPY 12/18/2018 PROCEDURE: HISTORICAL COLONOSCOPY; COMMENT: Dr. Aguilar -grade 3 hemorrhoids, tortuous colon, otherwise negative. Repeat in 5 years due to fair prep. KNEE ARTHROSCOPY 2013 Left PROCEDURE:KNEE ARTHROSCOPY TONSILLECTOMY PROCEDURE:TONSILLECTOMY APPENDECTOMY PROCEDURE:APPENDECTOMY ROTATOR CUFF REPAIR 2016 Left PROCEDURE:ROTATOR CUFF REPAIR FINGER TENDON REPAIR 02/22/2018 Right thumb Medical History Medical History Date Comments Low back pain 08/16/2010 DX:Low back pain Bleeding per rectum 08/16/2010 DX:Bleeding per rectum; COMMENT: hemorrhoids treated surgically Hernia, inguinal, bilateral 08/16/2010 DX:H ernia, inguinal, bilateral H. pylori infection 07/18/2008 DX:H. pylori infection; COMMENT: [place] - Treated with Pylera & Prilosec x 10 days. DDD (degenerative disc disease), lumbar 08/26/19 11 DX:DDD (degenerative disc disease), lumbar Lumbar herniated disc 08/25/2010 DX:Lumbar herniated disc Hearing loss 08/09/2011 DX:Hearing loss Hypertension 08/09/2011 DX:Hypertension JOHN (obstructive sleep apnea) 07/13/2015 DX :JOHN (obstructive sleep apnea); COMMENT: [facility] Polysomnogram treatment study. Date 04/09/2016 . SE 61 % SM 73 %; spent 72 % of the study in REM. At the optimal pressure of 7; RDI 2 (AHI 0), RERAs 2; and, average oxygen saturation was 93%. For the entire study, PLMs -31. GERD (gastroesophageal reflux disease) 1 DX:GERD (gastroesophageal reflux disease) Depression 09/13/2011 DX:Depression Syncope and collapse 01/28/2013 DX:Syncope and collapse Speech or language problem 06/11/2014 DX:Sp eech or language problem Bipartite patella 07/12/2016 DX:Bipartite p atella Hypercholesterolemia 07/12/2016 DX:Hypercho lesterolemia Fibromyalgia 09/18/2014 DX:Fibromyalgia Vitamin D deficiency 03/14/2017 DX:Vitamin D deficiency Acquired deviated nasal septum 10/04/2018 D X:Acquired deviated nasal septum Chronic bilateral low back p ain without sciatica 10/04/2018 DX:Chronic bilateral low alhaji k pain without sciatica Onychomycosis 06/17/2021 DX:Onychomycosis GERD (gastroesophageal reflux disease) DX:GERD (gastroesophageal reflux disease) Atypical chest pain DX:Atypical chest pain Hemorrhoids DX:Hemorrhoids Arthritis DX:Arthritis Hypertension DX:Hypertension Stroke (CMS/HCC) 1988 DX:Stroke ([facility]) Migraines DX:Migraines Depression DX:Depression Obstructive sleep apnea DX:Obstr uctive sleep apnea Migraine Family History Medical History Relation Name Comments Cirrhosis Father Heart attack Mother Heart disease Mother Breast cancer Mother's side Great Aunt Breast cancer Paternal Grandmother DM Hypertension Sister dm Prostate cancer Uncle Paternal Relation Name Status Comments Father Mother Mother's side Paternal Grandmother Sister Alive Uncle Social History Tobacco Use Types Packs/Day Years [...] Orientation Straight 04/03/2024 1: 38 PM EST Obstetrics History Last Filed Vital Signs Vital Sign Reading [...] Mass Index 30.13 04/09/2024 2:25 PM EST Plan of Treatment Upcoming Encounters Date Type Department Care Team (Late st Contact Info) Description 07/12/2024 8:30 AM EDT Office Visit [facility] [place] [address] [facility] [address] [place] [phone] Tess Sun MD [address] [facility] [address] [place] [phone] 08/02/2024 8:45 AM EDT Office Visit Adult Medicine [facility] [address] [place] [phone] Corinne Devi MD [address] [place], [place] [phone] 12/03/2024 9:30 AM EDT Consult Bariatric Surgery - [place] [address] [facility] [address] [place] [phone] Farzana Heart PA [address] [facility] [address] [place] [address] 01/21/2025 8:45 AM EST Office Visit Pulmonolgy - [place] [address] [facility] [address] [place] [phone] Gertrude Alaniz MD [address] [facility] [address] [place] [address] Health Maintenance Due Date Last Done Comments Diabetes: Annual Foot Exam 1974 Diabetes: Annual Retina Eye Exam 1974 Hepatitis B Vaccines (1 of 3 - 19+ 3-dose series) 12/01/1983 Pneumococcal Vaccine: 50+ Years (2 of 2 - PCV) 03/12/2021 03/12/2020 Pneumococcal Vaccine: Pediatrics (0 to 5 Years) and At-Risk Patients (6 to 64 Years) (2 of 2 - PCV) 03/12/2021 03/12/2020 HIV Screening 02/12/2022 Medicare Annual Wellness Visit 02/12/2022 Diabetes: Blood Sugar Control Test (HGBA1C) 10/02/2024 04/04/2024, 12/04/2023, 08/02/2023 Depression Screening 03/29/2025 03/29/2024 Social Influencers of Health Screening 03/29/2025 03/29/2024 Diabetes: Annual Urine Albumin-Creatinine Ratio (uACR) 04/04/2025 04/04/2024 Diabetes: Annual GFR (Glomerular Filtration Rate) 04/04/2025 04/04/2024, 08/02/2023 Hypertension/CHF/CAD Annual BMP Blood Test 04/04/2025 04/04/2024, 08/02/2023 Cholesterol Screening (Lipid Panel) 08/01/2028 08/02/2023 Colorectal Cancer Screening: Colonoscopy 04/09/2029 04/09/2024 DTaP,Tdap,and Td Vaccines (3 - Td or Tdap) 12/22/2030 12/22/2020, 08/16/2010 RSV Immunization Patients 60+ Years Old (1 - 1-dose 75+ series) 12/01/2039 Hepatitis C Screening Completed 12/11/2012 Zoster Vaccines Completed 06/08/2022, 01/21/2022 COVID-19 Vaccine Completed 11/25/2023, 07/2022, 12/31/2021, Additional history exists Influenza Vaccine Completed 11/25/2023, , 11/05/2021, Additional history exists HIB Vaccines Aged Out No longer eligi ble based on patient's age to complete this topic HPV Vaccines Aged Out No longer eligi ble based on patient's age to complete this topic Hepatitis A Vaccines Aged Out No long er eligible based on patient's age to complete this topic IPV Vaccines Aged Out No longer eligi ble based on patient's age to complete this topic MMR Vaccines Aged Out No longer eligi ble based on patient's age to complete this topic Meningococcal ACWY Vaccine Aged Out N o longer eligible based on patient's age to complete this topic Meningococcal B Vacine Aged Out No lo nger eligible based on patient's age to complete this topic RSV Immunization Patients Under 20 months Aged Out No longer eligible based on patient's age to complete this topic Varicella Vaccines Aged Out No longer eligible based on patient's age to complete this topic Procedures Procedure Name Priority Date/Time Associated Diagnosis Comments COLONOSCOPY Routine 04/09/2024 3:44 PM EST History of colon polyps XR FINGERS 2+ VIEWS BILATERAL Routine 04/05/2024 10:39 AM EST Pain NV ARTHROCENTESIS/ASPIRA TION/INJECTION SMALL JOINT/BURSA WO U/S GUIDANCE Routine 04/05/2024 10:15 AM EST Arthritis of carpometacarpal (CMC) joint of right thumb MICROALBUMIN CREATININE URINE RATIO Routine 04/04/2024 10:50 AM EST Type 2 diabetes mellitus with peripheral vascular disease (CMS/HCC) COMPREHENSIVE METABOLIC PANEL Routine 04/04/2024 10:50 AM EST Primary hypertension Type 2 diabetes mellitus with peripheral vascular disease (CMS/HCC) HEMOGLOBIN A1C Routine 04/04/2024 10:50 AM EST Type 2 diabetes mellitus with peripheral vascular disease (CMS/HCC) from Last 3 Months Results * COLONOSCOPY Anesthesia - MAC; [facility] ENDOSCOPY (04/09/2024 3:44 PM EST) Anatomical Region Laterality Modality Endoscopy 04/09/2024 3:32 PM EST Impressions 04/09/2024 3:54 PM EST - Internal hemorrhoids. ? - The examination was otherwise normal. ? - No specimens collected. Recommendation: ?- Discharge patient to home. ? - Repeat colonoscopy in 10 years for screening ? purposes. Narrative 04/09/2024 3:54 PM EST [facility] GI Patient Name: Aden Groves Procedure Date: [...] verified by the physician, the nurse, the refrigerating engineer ? and the residential air sealing technician in the pre-procedure area in the [...] malignant neoplasm ? of colon CPT copyright 2020 [employer]. All rights reserved. The codes documented in this report are preliminary and upon master at arms review may be revised to meet current compliance requirements. Henry Madison MD 04/09/2024 3:54:02 PM This report has been signed electronically.Henry Madison MD Number of Addenda: 0 Note Initiated On: 04/09/2024 3:32 PM Scope Withdrawal Time: 0 hours 8 minutes 7 seconds Scope In: 3:37:01 PM Scope Out: 3:47:06 PM ? Endoscopy Department at [facility] - [address] [place] [address], ? [place] [phone] Procedure Note Henry Madison MD - 04/09/2024 [facility] GI Patient Name: Aden Groves Procedure Date: [...] the physician, the nurse, theanesthetist and the residential air sealing technician in the pre-procedure area in the [...] for malignantneoplasm of colon CPT copyright 2020 [employer]. All rights reserved. The codes documented in this report are preliminary and upon master at arms reviewmay be revised to meet current compliance requirements. Henry Madison MD 04/09/2024 3:54:02 PM This report has been signed electronically.Henry Madison MD Number of Addenda: 0 Note Initiated On: 04/09/2024 3:32 PM Scope Withdrawal Time: 0 hours 8 minutes 7 seconds Scope In: 3:37:01 PM Scope Out: 3:47:06 PM Endoscopy Department at [facility] - [address] [place] [phone] IMPRESSION: - Internal hemorrhoids. - The examination was otherwise normal. - No specimens collected. Recommendation: - Discharge patient to home. - Repeat colonoscopy in 10 years for screening purposes. us Henry Madison MD GI~PROCEDURE ORDERABLES Fin al Result * XR Fingers 2+ Views bilat (04/05/2024 10:39 AM EST) Anatomical Region Laterality Modality Upper Extremities, Fingers Bilateral Compu nandini Radiography Narrative 04/05/2024 2:06 PM EST AP, lateral, oblique of [id number] bilateral thumbs was obtained on 04/05/2024. ??There are no prior images available for comparison. ??There is some generalized osteopenia. ??On the AP views what is most notable is that the resting posture of the MP joint of the right thumb suggest chronic laxity of the radial collateral ligament. ??There is some arthrosis on the head of the metacarpal. ??There is some mild joint space narrowing at the basal joint more so on the right than on the left. ??There are some subchondral cysts of the trapezium on the right. Impression: Laxity of the radial collateral ligament of the MP joint on the right. ??CMC arthritis on the right thumb. us Aleida Iglesias MD IMG XR PROCEDURES Final Resul t * NV ARTHROCENTESIS/ASPIRATION/INJECTION SMALL JOINT/BURSA WO U/S GUIDANCE (04/05/2024 10:15 AM EST) Narrative Aleida Iglesias MD - 04/05/2024 10:15 AM EST Aleida [...] Iglesias MD IN CLINIC/BEDSIDE ORDERABLES Final Result * (ABNORMAL) Microalbumin creatinine urine ratio (04/04/2024 10:50 AM EST) Creatinine, Urine 238.0 mg/dL LAB CHEMISTRY METHOD 04/04/2024 1:27 PM EST [facility] Microalb, Ur 40.9(H) 0.0 - 29.0 mg/L LAB CHEMISTRY METHOD 04/04/2024 1:27 PM EST [facility] Microalb/Crea t Ratio 17 <30 mg/g creat LAB CHEMISTRY METHOD 04/04/2024 1:27 PM EST [facility] Urine Urine specimen from urethra / Unknown Non-blood Collection / Unknown 04/04/2024 10:50 AM EST 04/04/2024 10:50 AM EST us Rebecca MARIE LAB URINE ORDERABLES Final Re sult [facility] [address] [place] [address], * Hemoglobin A1c (04/04/2024 10:50 AM EST) Pathologist [facility] Hemoglobin A1C 6.3 <6.5 % LAB CHEMISTRY METHOD 04/04/2024 2:[address] [facility] Mean Bld Glu Estim. 134 mg/dL LAB CHEMISTRY METHOD 04/04/2024 2:[address] [facility] Blood Venous blood specimen / Unknown Venipuncture / Unknown 04/04/2024 10:50 AM EST 04/04/2024 10:50 AM EST us Rebecca MARIE LAB BLOOD ORDERABLES Final Re sult [facility] [address] [place] [address], * Comprehensive metabolic panel (04/04/2024 10:50 AM EST) [facility] Sodium 137 133 - 145 mmol/L LAB CHEMISTRY METHOD 04/04/2024 3:[address] [facility] Potassium 4.8 3.5 - 5.5 mmol/L LAB CHEMISTRY METHOD 04/04/2024 3:[address] [facility] Chloride 102 96 - 110 mmol/L LAB CHEMISTRY METHOD 04/04/2024 3:[address] [facility] CO2 28 21 - 32 mmol/L LAB CHEMISTRY METHOD 04/04/2024 3:[address] [facility] Anion Gap 7 3 - 11 LAB CHEMISTRY METHOD 04/04/2024 3:[address] [facility] Glucose 99 70 - 100 mg/dL LAB CHEMISTRY METHOD 04/04/2024 3:[address] [facility] BUN 16 5 - 25 mg/dL LAB CHEMISTRY METHOD 04/04/2024 3:[address] [facility] Creatinine 0.95 0.70 - 1.30 mg/dL LAB CHEMISTRY METHOD 04/04/2024 3:[address] [facility] eGFR 92 >=60 mL/min/1. 73m2 LAB CHEMISTRY METHOD 04/04/2024 3:[address] [facility] Comment:Calculation based on the??Chronic Kidney Disease Epidemiology Collaboration (CKD-EPI) equation refit??without adjustment for race. BUN/Creatinine Ratio 16.8 LAB CHEMISTRY METHOD 04/04/2024 3:[address] [facility] Calcium 9.8 8.5 - 10.5 mg/dL LAB CHEMISTRY METHOD 04/04/2024 3:[address] [facility] AST (SGOT) 27 10 - 42 unit/L LAB CHEMISTRY METHOD 04/04/2024 3:[address] [facility] ALT (SGPT) 38 10 - 60 unit/L LAB CHEMISTRY METHOD 04/04/2024 3:[address] [facility] Alkaline Phosphatase 67 42 - 121 unit/L LAB CHEMISTRY METHOD 04/04/2024 3:[address] [facility] Total Protein 7.7 6.0 - 8.0 g/dL LAB CHEMISTRY METHOD 04/04/2024 3:[address] [facility] Albumin 4.6 3.2 - 5.0 g/dL LAB CHEMISTRY METHOD 04/04/2024 3:[address] [facility] Total Bilirubin 0.4 0.0 - 1.4 mg/dL LAB CHEMISTRY METHOD 04/04/2024 3:[address] [facility] Blood Venous blood specimen / Unknown Venipuncture / Unknown 04/04/2024 10:50 AM EST 04/04/2024 10:50 AM EST us Rebecca MARIE LAB BLOOD ORDERABLES Final Re sult [facility] [address] [place] [address], from Last 3 Months Insurance MEDICARE MEDICAID - [place] Care Teams Sneller Hand Relationship Specialty Start Date End Date Corinne Devi MD [address] [place] [address] PCP - General Internal Medicine 04/04/24
[2024-04-27 10:34] LABS: Influenza A PCR NEGATIVE (Negative); Influenza B PCR NEGATIVE (Negative); Resp Syncy Virus RNA Qual PCR NEGATIVE (Negative); SARS COV2 PCR INHOUSE POSITIVE (Negative)
[2024-04-27 12:45] VITALS: BP 139/81; PULSE 101; RESP 20; TEMP 37.3; O2SAT 98
--- NOTE | 2024-04-27 12:45 | ED_ITS ---
HPI - General Adult General Chief complaint: Upper Respiratory Symptoms Stated complaint: paxlovid rebound Time Seen by Provider: 04/27/24 12:44 Source: patient Mode of arrival: ambulatory Limitations: no limitations History of Present Illness ED Provider: Nickie Crocker PA-C HPI narrative: Patient is a 58 year old assigned male at with a history of CVA, TBI, HTN, Migraines, and GERD presenting to the emergency department today with a headache and possible COVID. Patient states that he was diagnosed with COVID-19 last week, prescribed Paxlovid, and finished that on 04/21/2024. Patient states that shortly after he began to have symptoms again like COVID-19 and tested positive so his PCP told him to come to the ER. Patient denies any dizziness, lightheadedness, abdominal pain, nausea, vomiting, fever, blurry vision, double vision, loss of vision, chest pain, difficulty breathing, shortness of breath, back pain, night sweats, pain with urination, increased urinary frequency, increased urinary urgency, blood in his urine or stool, syncope or a near syncopal episode, recent trauma or falls, bowel incontinence, bladder incontinence, or any other complaints at this time. Onset (ago): day(s) Relieving factors: none Exacerbating factors: none Associated symptoms: headaches Treatments prior to arrival: none Related Data Home Medications ?Medication ?Instructions ?Recorded ?Confirmed amlodipine 5 mg-atorvastatin 20 mg 1 tab PO DAILY 12/27/19 tablet bupropion HCl 75 mg tablet 75 mg PO TID 12/27/19 onabotulinumtoxinA 100 unit subcut 12/27/19 solution for injection (Botox) amlodipine 5 mg-benazepril 20 mg 1 cap PO DAILY 02/09/23 capsule atorvastatin 10 mg tablet 10 mg PO DAILY 02/09/23 losartan 25 mg tablet 25 mg PO DAILY 02/09/23 Previous Rx's ?Medication ?Instructions ?Recorded ibuprofen 600 mg tablet 600 mg PO Q8H PRN pain #14 tabs 02/24/21 Allergies Allergy/AdvReac Type Severity Reaction Status Date / Time oxycodone [OxyContin] Allergy Intermediate Headache Verified 04/27/24 09:37 MSCONTIN Allergy Intermediate HEADACHES Uncoded 04/27/24 09:32 Review of Systems Constitutional: Constitutional: Reports no additional constitutional complaints, Reports chills, Denies fever(s), Reports headache(s) and Denies night sweats Eyes: Eyes: Reports no additional eye complaints, Denies blurry vision, Denies change in vision, Denies diplopia, Denies eye discharge, Denies loss of vision and Denies eye pain ENT: Denies dizziness, Reports headache(s) and Reports nasal congestion Cardiovascular: Cardiovascular: Reports no additional cardiovascular complaints, Denies chest pain, Denies lightheadedness, Denies Loss of Consciousness and Denies dyspnea Respiratory: Respiratory: Reports no additional respiratory complaints and Denies dyspnea Gastrointestinal: Gastrointestinal: Reports no additional gastrointestinal complaints, Denies abdominal pain, Denies melena, Denies hematochezia, Denies change in bowel habits and Denies change in stool character Genitourinary: Genitourinary: Reports no additional male genitourinary complaints, Denies hematuria, Denies oliguria, Denies difficulty urinating, Denies dysuria, Denies urinary frequency, Denies urinary hesitancy, Denies urinary incontinence and Denies urinary urgency Musculoskeletal: Musculoskeletal: Reports no additional musculoskeletal complaints, Denies numbness and Denies tingling Neurologic: Denies dizziness, Reports headache(s), Denies loss of vision, Denies numbness and Denies tingling Psychiatric: Psychiatric: Reports no additional psychiatric complaints Endocrine: Endocrine: Reports no additional endocrine complaints Hematologic/Lymphatic: Hematologic/Lymphatic: Reports no additional hematologic/lymphatic complaints Allergic/Immunologic: Allergic/Immunologic: Reports no additional allergic/immunologic complaints PMFSH Past Medical History Attestation statement: The following information was validated with the patient. Source: old records reviewed and nursing notes reviewed Medical History Chronic pain Migraines High cholesterol Hypertension Surgical History History of appendectomy H/O left knee surgery Social History Social History Alcohol intake: never Physical Exam ED Vital Signs: Vital Signs - 24 hr 04/27/24 09:32 04/27/24 12:45 04/27/24 12:48 Temperature 99.4 F 99.1 F 99.1 F Pulse Rate 106 H 101 H 101 H Respiratory Rate 18 20 20 Blood Pressure 126/82 139/81 139/81 Pulse Oximetry 96 98 98 Oxygen Delivery Method Room Air Room Air Room Air BMI result Body Mass Index 28.7 Const General: cooperative, no acute distress, alert and awake Nutritional Appearance: well nourished Orientation/consciousness: patient oriented x3 Limitations: no limitations HENMT Head: Yes normal to inspection and Yes atraumatic Ears: hearing grossly normal bilaterally and external ears normal General nose exam: Normal external nose present, no nasal discharge noted and no epistaxis Face and sinus: Yes normal facial exam, No abrasion and No laceration Mouth: Normal oral and palatal mucosa present, no drooling and no muffled voice Eyes General: appearance normal, both eyes and all related structures Periorbital: periorbital findings normal Eyelids: Yes eyelids normal Conjunctivae: conjunctivae normal Pupils: Equal, round and reactive pupils present EOM: EOMs intact bilaterally Neck Neck: Yes normal visual inspection, Yes full ROM and Yes no lymphadenopathy Chest Chest palpation & inspection: normal inspection of the chest Resp Effort & Inspection: normal respiratory effort and able to speak in complete sentences GI Inspection: Yes normal to inspection Neuro General: patient oriented x3, moves all extremities and CN's II-XI intact bilaterally Cranial nerves: Yes Equal, round and reactive pupils present Cognition (Neuro): normal cognition Extrem General: Yes normal to inspection, Yes full ROM and Yes capillary refill normal Psych Appearance: grossly normal Mental Status: mental status grossly normal Affect: normal affect Attitude: cooperative Thought process: Normal thought process present Thought content: Normal thought content present Insight: Good insight present (Psych) Medical Decision Making Medical Decision Making MDM Narrative: Patient is a 58 year old assigned male at with a history of CVA, TBI, HTN, Migraines, and GERD presenting to the emergency department today with a headache and possible COVID. Patient's physical exam was unremarkable. Patient's chest x-ray showed no acute process. Patient's COVID-19 test was positive. I explained my physical exam findings as well as all test results to the patient. I answered all questions asked by the patient. The patient and I discussed, at length, the possibility that he is still positive for COVID-19 due to his previous infection with rebound symptoms vs. infected with a different strain of COVID-19. However, due to being unable to differentiate, it is not appropriate to prescribe another round of Paxlovid. I stressed the importance of the patient taking his medication as directed (either prescribed or as the over the counter packaging recommends). I stressed the importance of the patient following up with his primary care provider. I stressed the importance of the patient returning to the emergency department immediately if his symptoms were to worsen or if he were to develop any dizziness, shortness of breath, difficulty breathing, chest pain, blurry vision, loss of vision, nausea, vomiting, abdominal pain, fever, chills, back pain, or any other complaints. Patient verbalized agreement and understanding with this treatment plan and discharge. Differential Diagnosis Differential Diagnoses: The differential diagnosis associated with the presentation includes Viral illness Influenza COVID-19 Rebound COVID Admission/Observation Consideration of admission/observation: Escalation of care including admission/observation considered Patient would have been admitted to the hospital had his work up had any findings where hospital admission was appropriate and his clinical presentation warranted hospital admission. Lab Data [facility] Lab Attestation statement: I reviewed the patient's lab results. My interpretation of these results are in the [facility] Rationale portion of this note. Labs: Lab Results 04/27/24 Range/Units 09:49 Influenza Type A (PCR) NEGATIVE (Negative) Influenza Type B (PCR) NEGATIVE (Negative) RSV RNA Qual (PCR) NEGATIVE (Negative) SARS-CoV-2 RNA (RT-PCR) POSITIVE A (Negative) Independent Interpretation I performed an independent interpretation of an: Plain X-Ray Interpretation: My interpretation is in agreement with the radiologist's impression of this imaging study. CLINICAL HISTORY: short of breath 1 view chest x-ray Comparison: 06/13/2020 Findings: The lungs are clear. Heart size is normal. No acute fracture. IMPRESSION: 1. No acute findings. This document has been electronically signed by: Tara Gates MD on 04/27/2024 11:00:48 Dictated By: Tara Gates MD Signed By: Electronically signed by Tara Gates MD 04/27/24 1101 Radiology Impression Discussion of test interpretation with radiology: I have reviewed the radiologist's reading. Prescription Management I considered prescription management with: Antiviral (considered prescribing Paxlovid as noted in the MDM Rationale portion of this note.) Discharge Plan Discharge Clinical Impression: COVID-19 Patient Disposition: Home, Self-Care Instructions: COVID-19 (Coronavirus Disease 2019) (ED) Additional Instructions: Follow up with your primary care provider. Return to the emergency department immediately if your symptoms worsen or if you develop any dizziness, shortness of breath, difficulty breathing, chest pain, blurry vision, loss of vision, nausea, vomiting, abdominal pain, fever, chills, back pain, or any other complaints. Prescriptions: No Action ibuprofen 600 mg tablet 600 mg PO Q8H PRN (Reason: pain) Qty: 14 0RF amlodipine-atorvastatin 5-20 mg tablet 1 tab PO DAILY bupropion HCl 75 mg tablet 75 mg PO TID Rx Instructions: administer 6 hours apart Botox 100 unit recon soln subcut amlodipine-benazepril 5-20 mg capsule 1 cap PO DAILY atorvastatin 10 mg tablet 10 mg PO DAILY losartan 25 mg tablet 25 mg PO DAILY Referrals: Corinne Devi MD [Primary Care Provider] - Interventions: ED Discharge Assessment Last Done: 04/27/24 12:48 Discharge Date/Time: 04/27/24 12:49 Print Language: Frisian
[2024-04-27 12:48] VITALS: BP 139/81; PULSE 101; RESP 20; TEMP 37.3; O2SAT 98
== END 2024-04-27 12:49 | disposition home or self-care (01) ==
PROVIDERS: Emergency Provider Emergency Medicine; PCP Internal Medicine
DX: U07.1 COVID-19 (principal); R06.02 Shortness of breath
CPT/HCPCS: 0241U; 71045; 99282; 99283

== ENCOUNTER → 2024-04-27 09:50 | Outpatient (BNV) | payer MEDICARE, MEDICAID, SELFPAY | PROVIDERS: PCP Internal Medicine; Visit Provider Radiology Diagnostic Radiology | DX: R06.02 Shortness of breath (principal) | CPT/HCPCS: 71045 ==

== ENCOUNTER 2025-02-04 10:31 | Outpatient (AMB) | payer MEDICARE, MEDICAID, SELFPAY ==
--- NOTE | 2025-02-04 10:41 | A.PHYSOV_ITS ---
Intake Visit Reasons: Wants back injection-hasn't been seen since 2023 Intake Note: Patient is a 59 year old male here with lower back pain. Patient is interested in having an injection ordered. 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 The patient's last injection was over a year ago, in November, and provided good, long-term relief. The patient reports that about a month ago, the pain returned with such severity that it took the patient's breath away, which the patient believes was aggravated by household activities. The pain is localized to the low back and does not radiate into the legs. The patient has tried conservative measures including Epsom salt, topical rubs, and heat. The patient reports a 30-pound weight loss achieved through regular gym attendance, including hitting a punching bag and doing planks, dietary changes, increased water intake, and improved sleep hygiene. Pain Description - Location: Pain is localized to the low back. - Radiation: The patient denies radiation of pain into the legs. - Exacerbating factors: Pain is reproduced with lumbar extension and was aggravated by performing activities in the house. - Relieving factors: The patient reports prior long-term relief from injections and currently uses Epsom salt, rubs, and heat. - Quality and Severity: The patient experienced a severe episode last month that was breathtaking, but the pain is not as severe at present. Procedure: Bilateral L4-5, L5-S1 facet injection 11/17/2023 85% reduction of his pain for over a year. [facility] Medical History Chronic pain Migraines High cholesterol Hypertension Surgical History History of appendectomy H/O left knee surgery Social History (Updated 02/04/25 @ 10:45 by Talia Ibarra MA) Alcohol intake: never Patient Tobacco Use Status: Never used Tobacco Review of Systems Narrative Review of Systems - Musculoskeletal: Reports low back pain. - Neurological: Denies radiation of pain into the legs. - Constitutional: Reports a 30-pound weight loss. Physical Exam Exam Exam: Physical Exam Lumbar Spine: Examination of his lumbar spine, there is no visible swelling or deformity. He is tender to lower lumbar facets. He is otherwise nontender. Full range of motion of his lumbar spine. He does have an increase in pain with facet loading. Special Tests: Lhermittes sign was negative Heel Toe walk is normal Left straight leg raise: Negative Right straight leg raise: Negative Special tests Minal test is negative Ganslen's test is negative SI Joint compression test negative Yoav test negative Piriformis stretch is negative Lower Extremities: Full range of motion bilateral lower extremities. No calf pain or edema. Neuro: Sensation: Intact to lower extremities bilaterally Strength L2 (Psoas): 5/5 on the left and 5/5 on the right. L3 (Quads): 5/5 on the left and 5/5 on the right. L4 (Ant tibialis): 5/5 on the left and 5/5 on the right. L5 (EHL) 5/5 on the left and 5/5 on the right. S1 (Gastroc): 5/5 on the left and 5/5 on the right. DTR L4: (Patellar) Left 2 Right 2 S1: (Achilles) Left 2 Right 2 Babinski Downgoing No pathologic clonus. No involuntary movement. Assessment & Plan Assessment & Plan (1) Vertebrogenic low back pain: Code(s): M54.51 - Vertebrogenic low back pain Category: Medical Plan Pain Management - Analgesia: The patient received significant relief from a facet injection over a year ago and is now requesting another due to recurrent pain. - Activities of Daily Living: The patient reports still struggling with the pain and believes it was aggravated by household activities. - Aberrant Drug Related Behaviors: The patient demonstrates appropriate use of interventional procedures, seeking them only when needed rather than on a fixed schedule. Plan Patient was informed and verbally consented to the use of an ambient scribe for clinic note documentation during this visit. 1. Low Back Pain The patient's low back pain is consistent with lumbar facet arthropathy, given the localization of pain, exacerbation with extension, and previous positive response to facet injections. The plan is to order bilateral L4-5 and L5-S1 facet injections to be administered by Dr. Gutierrez. The patient's recent 30-pound weight loss is a positive prognostic factor. Patient received greater than 50% reduction of his pain from his last facet injection over a year ago. He is requesting repeat injection which I will obtain prior authorization for. Patient has been performing his physician directed home exercise plan and using his medications as prescribed without relief. We discussed the benefits of proper nutrition and exercise to maintain a healthy body weight to improve longevity and function. We also discussed the benefits of proper lifting techniques, core strengthening and proper posture. Thank you for allowing me to participate in the care of your patient. Coding Level of Care Code Tele Est Pt Level 3 (70063) Diagnoses Vertebrogenic low back pain M54.51
--- OUTSIDE RECORDS SUMMARY | 2025-02-04 12:05 | XMS_ITS ---
Author Name [facility] Organization Unknown History of Medication Use Medication Directions Dispensed Refills Start Date End Date Stat botulinum toxin type A (BOTOX) injection SOLR 200 Units 200 Units, Intramuscular, Once, On Mon10/25/23 at 1045, For 1 dose 10/25/2023 4 completed atorvastatin (LIPITOR) tablet 10 mg Take 1 tablet (10 mg total) by mouth every night at bedtime. 07/04/2023 active Cholecalciferol (Vitamin D) 50 MCG (1999) CAPS Take 1 capsule by mouth daily. 04/03/2023 active losartan (COZAAR) tablet 50 mg Take 1 tablet (50 mg total) by mouth every night at bedtime. 03/27/2023 active acetaminophen (TYLENOL) 325 MG tablet Take 650 mg by mouth every 6 (six) hours as needed for pain. 4 aborted amLODIPine 5 MG TABS 1 tablet, benazepril 20 MG TABS 1 tablet Take 1 tablet by mouth daily. 4 aborted Meloxicam 10 MG CAPS Take by mouth. 4 aborted pravastatin (PRAVACHOL) tablet 20 mg Take 20 mg by mouth daily. 4 aborted SUMAtriptan (IMITREX) 50 MG tablet Take 50 mg by mouth every 2 (two) hours as needed for migraine. 4 aborted botulinum toxin type A (BOTOX) 100 units SOLR injection every 3 (three) months. active buPROPion (Wellbutrin SR) 200 MG 12 hr tablet Take 300 mg by mouth daily. active esomeprazole (NexIUM) 40 MG packet Take 40 mg by mouth every morning before breakfast. active fluticasone (FLONASE) 50 MCG/ACT nasal spray spray/apply 1 spray in each nostril daily. active Problems Problem Status Onset Date Problem Type Date of Resolution Source Tension headache active EncounterDiagnosisAct CTTHNEMG Migraine without aura and without status migrainosus, not intractable active EncounterDiagnosisAct CTT HNEMG Encounters Encounter Type Encounter Reason Primary Diagnosis Location Date Ambulatory [facility] 12/15/2023 Care Team Organization Name Specialty Phone Email Start Date End Da te [facility] 10/23/2024 [facility] 06/29/2024 [facility] Corinne Devi Primary Care 08/12/2022 [facility] Shanna Akdins Primary Care 05/11/20222023 [facility] Brigitte, PROVIDER Primary Care 01/11/202210/04
--- OUTSIDE RECORDS SUMMARY | 2025-02-04 12:06 | XMS_ITS | Clinical Summary ---
Author Organization [facility] Address [address] [place] [address] Care Team Providers Care Toll Lineman Name Role Phone Hector Perry MD Primary Care Provider [phone] Allergies No known active allergies Medications Medication [...] night at bedtime. 0 07/04/2023 Active rizatriptan (MAXALT-LITIGATION CLAIM REPRESENTATIVE) 10 MG disintegrating tablet Take 1 tablet [...] 69 12/13/2023 8:35 AM EDT Temperature 36 C (96.8 F) 12/13/2023 8:35 AM EDT Respiratory Rate - - Oxygen Saturation 98% 09/15/2023 8:59 AM EDT Inhaled Oxygen Concentration - - Weight 93.4 kg (206 lb) 12/13/2023 8:35 AM EDT Height 177.8 cm (5' 10 ) 12/13/2023 8:35 AM EDT Body Mass Index 29.56 12/13/2023 8:35 AM EDT Plan of Treatment Health Maintenance Due Date Last Done Comments Hepatitis C Screening 1965 COVID-19 Vaccine (#1) 05/30/1965 Depression Screening 1976 BMI Counseling 1982 Preventative Health Evaluation 1982 Colon Cancer Screening (Colonoscopy) 2009 Influenza Vaccine (#1) 2024 , 11/05/2021, 11/08/2020, Additional history exists DTap / Tdap / Td (3 - Td or Tdap) 12/22/2030 12/22/2020, 08/16/2010 RSV Adult > 60+ Yrs or (1 - 1-dose 75+ series) 12/01/2039 Pneumococcal Vaccine Aged Out 03/12/2020 No long er eligible based on patient's age to complete this topic Shingrix-Zoster Vaccine Completed 06/08/2022, 01/21 Hepatitis B Vaccines Aged Out No long er eligible based on patient's age to complete this topic RSV Ped < 20 months Aged Out No longe r eligible based on patient's age to complete this topic Care Teams Toll Lineman Relationship Specialty Start Date End Date Hector Perry MD [address] [place] [address] PCP - General Internal Medicine 12/11/20
== END 2025-02-04 10:59 | disposition home or self-care (01) ==
LOC: HO.HPHYS 10:31
PROVIDERS: PCP Internal Medicine; Visit Provider Physician Assistant
DX: M54.51 Vertebrogenic low back pain (principal)
CPT/HCPCS: 99213

== ENCOUNTER → 2025-02-04 10:31 | Outpatient (BNVA) | payer MEDICARE, MEDICAID, SELFPAY | PROVIDERS: PCP Internal Medicine; Visit Provider Physician Assistant | DX: M54.51 Vertebrogenic low back pain (principal) | CPT/HCPCS: 99212 ==

== ENCOUNTER 2025-02-21 07:44 | Outpatient (REF) | payer MEDICARE, MEDICAID, SELFPAY | END 2025-02-21 07:45 | disposition home or self-care (01) | LOC: HO.HPHYSR 07:44 | PROVIDERS: PCP Internal Medicine; Visit Provider Physical Medicine & Rehabilitation | DX: M47.816 Spondylosis without myelopathy or radiculopathy, lumbar region (principal) | CPT/HCPCS: 64493; 64494; J2003; J3301; Q9967 ==

== ENCOUNTER 2025-02-21 07:44 | Outpatient (AMB) | payer MEDICARE, MEDICAID, SELFPAY ==
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
--- OUTSIDE RECORDS SUMMARY | 2025-02-21 07:46 | XMS_ITS ---
Insurance MEDICARE MEDICAID [facility] Care Teams Furnace Tapper Relationship Specialty Start Date End Date Corinne Devi MD [address] [place] [address] PCP - General Internal Medicine 04/04/24 Clinical Summary Created on: February 21, 2025 Aden Elizondo Jr. : 1965 Sex: Male Author Organization [facility] Address [address] [place] [address] Phone Care Team Providers Care Furnace Tapper Name Role Phone Corinne Devi MD Primary Care Provider [phone] Allergies No known active allergies Medications botulinum toxin Type A (BOTOX) 100 unit recon soln injection every 3 (three) months. Active fluticasone propionate (FLONASE) 50 mcg/actuation nasal spray spray/apply 1 spray in each nostril daily. Active rizatriptan (MAXALT-CROWN PRESSER) 10 mg disintegrating tablet TAKE 1 TABLET BY MOUTH NEEDED FOR MIGRAINE. MAY REPEAT IN 2 HOURS IF NEEDED 10 tablet 3 01/16/20 24 Active cholecalciferol (VITAMIN D-3) 50 mcg (2,000 unit) capsule Take 1 capsule (2,000 Units total) by mouth 1 (one) time each day. 90 capsule 1 04/11/19 25 Active atorvastatin (LIPITOR) 10 mg tablet Take 1 tablet (10 mg total) by mouth at bedtime. Take 1 tablet (10 mg total) by mouth every night at bedtime. 90 each 1 08/03/19 25 Active losartan (COZAAR) 50 mg tablet Take 1 tablet (50 mg total) by mouth at bedtime. Take 1 tablet (50 mg total) by mouth every night at bedtime. 90 each 1 08/03/19 25 Active Trulicity 0.75 mg/0.5 mL pen injector injectionIndicati ons:Type 2 diabetes mellitus with peripheral vascular disease ([facility] V24, [facility] V28) INJECT 0.5 ML (0.75 MG TOTAL) UNDER THE SKIN ONE TIME PER WEEK 2 mL 5 01/15/20 [address] Active [address] capsule Take 1 capsule (40 mg total) by mouth 1 (one) time each day before breakfast. 90 each 3 02/05/20 25 026 Active NexIUM [address] capsule TAKE 1 CAPSULE BY MOUTH EVERY DAY IN THE MORNING BEFORE BREAKFAST 90 capsule 11/06/19 25 025 Discontinued Active Problems Problem Noted Date Diagnosed Date Overweight (BMI 25.0-29.9) 12/20/2024 Arthritis of carpometacarpal (CMC) joint of righ t thumb 04/05/2024 Onychomycosis 06/17/2021 Hypogonadism male 05/12/2020 Overview (01/25/2024): Sees urology Type 2 diabetes mellitus with peripheral vascula r disease 01/17/2020 Overview (01/25/2024): ED Assessment & Plan (06/14/2024 11:59 AM EDT): Well-controlled. Continue Trulicity 0.75 mg weekly. Reassured that it is unlikely the Trulicity is causing his symptoms. He is not having any hypoglycemic episodes He is due for an A1c at the end of this month. This is pended for July 03. His insurance will not pay for an A1c if it is done today. 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 Fasting lipids ordered Orders: Lipid panel with reflex to direct LDL; Future atorvastatin (LIPITOR) 10 mg tablet; Take 1 tablet (10 mg total) by mouth at bedtime. Take 1 tablet (10 mg total) by mouth every night at bedtime. MCI (mild cognitive impairment) 07/13/2015 JOHN (obstructive sleep apnea) 07/13/2015 Overview (01/25/2024): [facility] Polysomnogram treatment study. Date 04/09/2016 . SE 61 % SM 73 %; spent 72 % of the study in REM. At the optimal pressure of 7; RDI 2 (AHI 0), RERAs 2; and, average oxygen saturation was 93%. For the entire study, PLMs ~31. [facility] Home Polysomnogram: Date 07/17/2017; AHI 15, Unclassified apneas 0; Obstructive apneas 9; Central apneas 0; Mixed apneas 0; hypopneas 102; average oxygen saturation 95% (lowest 84% without saturations <88% for 5% or more of study) [facility] home sleep test 07/15/2021; weight 215; BMI [...] ordered by Dr. Piero Parra (done at [facility]) Fibromyalgia 09/18/2014 Complex renal cyst 10/10/2013 Depression 09/13/2011 Hearing loss 08/09/2011 Hypertension 08/09/2011 Assessment & Plan (06/14/2024 11:59 AM EDT): Continue losartan. Blood pressure stable. Goal is less than 130/80. Can be monitored at next visit with care team Orders: losartan (COZAAR) 50 mg tablet; Take 1 tablet (50 mg total) by mouth at bedtime. Take 1 tablet (50 mg total) by mouth every night at bedtime. DDD (degenerative disc disease), lumbar 08/26/19 11 GERD (gastroesophageal reflux disease) 1 Hernia, inguinal, bilateral 08/16/2010 H. pylori infection 07/18/2008 Overview (01/25/2024): [place] - Treated with Pylera & Prilosec x 10 days. Resolved Problems Problem Noted Date Diagnosed Date Resolved Date Restrictive pattern present on pulmonary function testing 07/13/2018 04/09/2024 Encounters Date Type Department Care Team Description 01/21/2025 8:45 AM EST Office Visit Pulmonology - [facility] [address] [facility] [address] [place] [address] Gertrude Alaniz MD JOHN (obstructive sleep apnea) (Primary Dx) 01/08/2025 9:40 AM EST Procedure visit [facility] [address] [facility] [address] [place] [phone] Tess Sun MD Chronic migraine with aura without status migrainosus, not intractable (Primary Dx) 12/20/2024 9:30 AM EDT Consult Bariatric Surgery - [facility] [address] [place] [address] Farzana Heart PA Overweight (BMI 25.0-29.9) (Primary Dx); Type 2 diabetes mellitus with peripheral vascular disease ([facility] V24, [facility] V28); JOHN (obstructive sleep apnea); Primary hypertension; Hyperlipidemia LDL goal <70 12/06/2024 9:30 AM EDT Office Visit [address] [phone] Reebcca Murphy PA Encounter for annual wellness visit (AWV) in Medicare patient (Primary Dx); Vitamin D deficiency; Type 2 diabetes mellitus with peripheral vascular disease ([facility] V24, [facility] V28); Primary hypertension; JOHN (obstructive sleep apnea); Hyperlipidemia LDL goal <70; Gastroesophageal reflux disease, unspecified whether esophagitis present; Overweight (BMI 25.0-29.9) 12/06/2024 Results Follow-Up Adult [address] [phone] Corinne Devi MD from Last 3 Months Immunizations Immunization Administration Dates Next Due Influenza Quadravalent, MDCK , 0.5ml, preservative free (Flucelvax) 6mo and older 11/11/2022,11/05/2021,11/26/2017 Influenza Quadravalent, MDCK , 0.5ml, with preservative (Flucelvax) 6mo and older 11/27/2016 Influenza Quadrivalent, 0.5m l, preservative free (Fluarix; FluLaval; Fluzone) ages 6mo and older (Afluria) 3yo and older 11/08/2020,12/09/2018 Influenza trivalent, MDCK, 0 .5mL, preservative free (Flucelvax) 6mo and older 11/25/2023 Influenza trivalent, recombi nant, 0.5mL, preservative free (Flublok) 9yo and older 12/06/2024 Influenza trivalent, with pr eservative (Fluzone; Afluria) 6mo and older 11/02/2019,12/01/2015,11/20/2014,12/24,11/13/2012,12/07/2011,12/02/2010 Influenza, Unspecified 11/04/2022,11/05/2021 Moderna Covid-19 Bivalent, O riginal + Ba.1 (Non-US Tradename Spikevax Bivalent) 12/31/2021 Moderna SARS-CoV-2 COVID-19, mRNA, LNP-S, preservative free 06/12/2020 Pneumococcal conjugate 20 va lent (Prevnar 20, PCV 20) 2mo and older 06/14/2024 Pneumococcal polysaccharide 23 valent (Pneumovax 23) 2yo and older 03/12/2020 SARS-COV-2 (COVID-19) Vaccin e, Unspecified 11/25/2023,12/08/2022 Tdap Tetanus diptheria acell ular pertussis (Boostrix; Adacel) 7yo and older 12/22/2020,08/16/2010 Zoster recombinant (Shingrix ) 19yo and older 06/08/2022,01/21/2022 Surgical History Surgery Date Site/Laterality Comments ESOPHAGOGASTRODUODENOSCOPY 07/2008 : [place] - antral gastritis, + H. pylori (treated) otherwise negative. OTHER SURGICAL HISTORY 06/23/2011 hemorrhoidectomy COLONOSCOPY 07/2008 [place] - 3 mm sigmoid hyperplastic polyp, otherwise negative. ESOPHAGOGASTRODUODENOSCOPY 06/22/2017 : normal with normal esophageal and gastric biopsies COLONOSCOPY 12/18/2018 Dr. Aguilar -grade 3 hemorrhoids, tortuous colon, otherwise negative. Repeat in 5 years due to fair prep. KNEE ARTHROSCOPY 2012 Left TONSILLECTOMY APPENDECTOMY ROTATOR CUFF REPAIR 2016 Left FINGER TENDON REPAIR 02/22/2018 Right thumb Medical History Medical History Date Comments Low back pain 08/16/2010 Hernia, inguinal, bilateral 08/16/2010 H. pylori infection 07/18/2008 : [place] - Tr eated with Pylera & Prilosec x 10 days. DDD (degenerative disc disease), lumbar 08/26/19 11 Lumbar herniated disc 08/25/2010 Hearing loss 08/09/2011 Hypertension 08/09/2011 JOHN (obstructive sleep apnea) 07/13/2015 : [facility] Polysomnogram treatment study. Date 04/09/2016 . SE 61 % SM 73 %; spent 72 % of the study in REM. At the optimal pressure of 7; RDI 2 (AHI 0), RERAs 2; and, average oxygen saturation was 93%. For the entire study, PLMs -31. GERD (gastroesophageal reflux disease) 1 Depression 09/13/2011 Hypercholesterolemia 07/12/2016 Fibromyalgia 09/18/2014 Vitamin D deficiency 03/14/2017 Onychomycosis 06/17/2021 Hemorrhoids Arthritis Migraine Type 2 diabetes mellitus wit h peripheral vascular disease ([facility] V24, [facility] V28) 01/17/2020 ED Family History Medical History Relation Name Comments Cirrhosis Father Heart attack Mother Breast cancer Mother's side Great Aunt Breast cancer Paternal Grandmother DM Hypertension Sister dm Prostate cancer Uncle Paternal Relation Name Status Comments Father Mother Mother's side Paternal Grandmother Sister Alive Uncle Social History Tobacco Use Types Packs/Day Years Used Date Smoking Tobacco: Former Cigarettes 0 Q uit: 12/09/1984 Smokeless Tobacco: Never Tobacco [...] for your loved ones. For example, child watch attendant or elderly care for an older adult? [...] Orientation Straight 04/03/2024 1: 38 PM EST Last Filed Vital Signs Vital Sign Reading Time Taken Comments Blood Pressure 124/82 01/21/2025 8:44 AM EST Pulse 87 01/21/2025 8:44 AM EST Temperature 35.8 C (96.4 F) 12/06/2024 9:34 AM EDT Respiratory Rate 12 12/06/2024 9:34 AM EDT Oxygen Saturation 98% 01/21/2025 8:44 AM EST Inhaled Oxygen Concentration - - Weight 82.9 kg (182 lb 12.8 oz) 01/21/2025 8:44 AM EST Height 177.8 cm (5' 10 ) 01/21/2025 8:44 AM EST Body Mass Index 26.23 01/21/2025 8:44 AM EST Plan of Treatment Upcoming Encounters Date Type Department Care Team (Late st Contact Info) Description 03/14/2025 9:00 AM EST Office Visit [facility] [address] [facility] [address] [place] [phone] Yudith Soares PA [address] [place] [phone] 04/08/2025 9:30 AM EST Office Visit Adult Medicine [facility] [address] [place], [place] [phone] Corinne Devi MD [address] [place] [address] 04/09/2025 9:20 AM EST Procedure visit [facility] [address] [facility] [address] [place] [phone] Tess Sun MD [address] [place] [address] 10/06/2025 9:00 AM EDT Office Visit Gastroenterology - [address] [facility] [address] [facility] [address] [place] [phone] Maria Del Rosario Ramirez NP [address] [facility] [address] [place] [address] 01/21/2026 8:45 AM EST Office Visit Pulmonology - [facility] [address] [facility] [address] [place] [phone] Gertrude Alaniz MD [address] [place] [phone] Health Maintenance Due Date Last Done Comments Diabetes: Annual Foot Exam 1974 HIV Screening 02/12/2022 Diabetes: Annual Urine Albumin-Creatinine Ratio (uACR) 04/04/2025 04/04/2024 Diabetes: Annual Retina Eye Exam 05/17/2025 05/17/2024 Diabetes: Blood Sugar Control Test (HGBA1C) 06/06/2025 12/06/2024, 06/14/2024, 04/04/2024, Additional history exists Diabetes: Annual GFR (Glomerular Filtration Rate) 06/14/2025 06/14/2024, 04/04/2024, 08/02/2023 Hypertension/CHF/CAD Annual BMP Blood Test 06/14/2025 06/14/2024, 04/04/2024, 08/02/2023 Social Influencers of Health Screening 11/29/2025 11/29/2024 Medicare Annual Wellness Visit 12/06/2025 12/06/2024 Colorectal Cancer Screening: Colonoscopy 04/09/2029 04/09/2024 Cholesterol Screening (Lipid Panel) 08/01/2029 08/01/2024, 08/02/2023 DTaP,Tdap,and Td Vaccines (3 - Td or Tdap) 12/22/2030 12/22/2020, 08/16/2010 RSV Immunization Adult Patients (1 - 1-dose 75+ series) 12/01/2039 Hepatitis C Screening Completed 12/11/2012 Zoster Vaccines Completed 06/08/2022, 01/21/2022 Pneumococcal Vaccine: 50+ Years Completed 06/14/2024, 03/12/2020 Depression Screening Completed 11/29/2024 COVID-19 Vaccine Completed 12/06/2024, , 12/08/2022, Additional history exists Influenza Vaccine Completed 12/06/2024, , 11/11/2022, Additional history exists HIB Vaccines Aged Out No longer eligi ble based on patient's age to complete this topic HPV Vaccines Aged Out No longer eligi ble based on patient's age to complete this topic Hepatitis A Vaccines Aged Out No long er eligible based on patient's age to complete this topic Hepatitis B Vaccines Aged Out No long [...] age to complete this topic Meningococcal B Vaccine Aged Out No l onger eligible based on patient's age to complete this topic RSV Immunization Patients Under 20 months Aged Out No longer eligible based on patient's age to complete this topic Varicella Vaccines Aged Out No longer eligible based on patient's age to complete this topic Procedures Procedure Name Priority Date/Time Associated Diagnosis Comments HEMOGLOBIN A1C Routine 12/06/2024 10:12 AM EDT Type 2 diabetes mellitus with peripheral vascular disease ([facility] V24, [facility] V28) LIPID PANEL WITH REFLEX TO DIRECT LDL Routine 08/01/2024 7:40 AM EDT Hypercholesterolemi a BASIC METABOLIC PANEL Routine 06/14/2024 11:38 AM EDT Benign paroxysmal positional vertigo due to bilateral vestibular disorder COLONOSCOPY Routine 04/09/2024 3:44 PM EST History of colon polyps MICROALBUMIN CREATININE URINE RATIO Routine 04/04/2024 10:50 AM EST Type 2 diabetes mellitus with peripheral vascular disease ([facility] V24, [facility] V28) from Last 3 Months or Most Recently Relevant to Health Maintenance Results * Hemoglobin A1c (12/06/2024 10:12 AM EDT) Hemoglobin A1C 5.6 <6.5 % LAB CHEMISTRY METHOD 12/06/2024 1:51 PM EDT [facility] Mean Bld Glu Estim. 114 mg/dL LAB CHEMISTRY METHOD 12/06/2024 1:51 PM EDT [facility] Blood Venous blood specimen / Unknown Venipuncture / Unknown 12/06/2024 10:12 AM EDT 12/06/2024 10:12 AM EDT us Corinne Devi MD LAB BLOOD ORDERABLES Final Resul t Performing Organization Address City/[facility]/ZIP Co de Phone Number [facility] [address] [place] [address], [place] [phone] * (ABNORMAL) Lipid panel with reflex to direct LDL (08/01/2024 7:40 AM EDT) Cholesterol 108 0 - 200 mg/dL LAB CHEMISTRY METHOD 08/01/2024 11:46 AM EDT [facility] Triglycerides 101 0 - 150 mg/dL LAB CHEMISTRY METHOD 08/01/2024 11:46 AM EDT [facility] HDL 37(L) >=40 mg/dL LAB CHEMISTRY METHOD 08/01/2024 11:46 AM EDT [facility] LDL Calculated 51 0 - 100 mg/dL LAB CHEMISTRY METHOD 08/01/2024 11:46 AM EDT [facility] VLDL Cholesterol Alex 20.2 mg/dL LAB CHEMISTRY METHOD 08/01/2024 11:46 AM EDT [facility] Non HDL Chol. (LDL+VLDL) 71 <145 mg/dL LAB CHEMISTRY METHOD 08/01/2024 11:46 AM EDT [facility] Chol/HDL Ratio 2.9 0.0 - 4.4 LAB CHEMISTRY METHOD 08/01/2024 11:46 AM EDT [facility] Blood Venous blood specimen / Unknown Venipuncture / Unknown 08/01/2024 7:40 AM EDT 08/01/2024 7:40 AM EDT us Summer Velásquez MD LAB BLOOD ORDERA BLES Final Result [facility] [address] [place] [address], [place] [phone] * Basic metabolic panel (06/14/2024 11:38 AM EDT) Sodium 138 133 - 145 mmol/L LAB CHEMISTRY METHOD 06/14/2024 2:31 PM [facility] Potassium 4.7 3.5 - 5.5 mmol/L LAB CHEMISTRY METHOD 06/14/2024 2:31 PM [facility] Chloride 103 96 - 110 mmol/L LAB CHEMISTRY METHOD 06/14/2024 2:31 PM [facility] CO2 32 21 - 32 mmol/L LAB CHEMISTRY METHOD 06/14/2024 2:31 PM [facility] Anion Gap 3 3 - 11 LAB CHEMISTRY METHOD 06/14/2024 2:31 PM [facility] Glucose 79 70 - 100 mg/dL LAB CHEMISTRY METHOD 06/14/2024 2:31 PM [facility] BUN 13 5 - 25 mg/dL LAB CHEMISTRY METHOD 06/14/2024 2:31 PM [facility] Creatinine 0.88 0.70 - 1.30 mg/dL LAB CHEMISTRY METHOD 06/14/2024 2:31 PM [facility] eGFR 99 >=60 mL/min/1. 73m2 LAB CHEMISTRY METHOD 06/14/2024 2:31 PM [facility] Comment:Calculation based on the Chronic Kidney Disease Epidemiology Collaboration (CKD-EPI) equation refit without adjustment for race. BUN/Creatinine Ratio 14.8 LAB CHEMISTRY METHOD 06/14/2024 2:31 PM [facility] Calcium 10.3 8.5 - 10.5 mg/dL LAB CHEMISTRY METHOD 06/14/2024 2:31 PM [facility] Blood Venous blood specimen / Unknown Venipuncture / Unknown 06/14/2024 11:38 AM EDT 06/14/2024 11:38 AM EDT Summer Velásquez MD LAB BLOOD ORDERA BLES Final Result [facility] [address] [place] [address], * COLONOSCOPY Anesthesia - MAC; [facility] ENDOSCOPY (04/09/2024 3:44 PM EST) Anatomical Region Laterality Modality Endoscopy 04/09/2024 3:32 PM EST Impressions 04/09/2024 3:54 PM EST - Internal hemorrhoids. - The examination was otherwise normal. - No specimens collected. Recommendation: - Discharge patient to home. - Repeat colonoscopy in 10 years for screening purposes. Narrative 04/09/2024 3:54 PM EST [facility] Patient Name: Aden Elizondo Procedure Date: 04/09/2024 3:32 PM Date of [...] the procedure, a History and Physical was performed, and patient medications and allergies were reviewed. The patient is competent. The risks and benefits of the procedure and the sedation options and risks were discussed with the patient. All questions were answered and informed consent was obtained. Patient identification and proposed procedure were verified by the physician, the nurse, the sales teacher and the auto emissions technician in the pre-procedure area in the endoscopy suite. Mental Status Examination: alert and oriented. Airway Examination: normal oropharyngeal airway and neck mobility. Respiratory Examination: clear to auscultation. CV Examination: normal. Prophylactic Antibiotics: The patient does not require prophylactic antibiotics. Prior Anticoagulants: The patient has taken no anticoagulant or antiplatelet agents. ASA Grade Assessment: II - A patient with mild systemic disease. After reviewing the risks and [...] monitored throughout the procedure. The physical status of the patient was re-assessed after the procedure. After I obtained informed consent, the scope was passed under direct vision. Throughout the procedure, the patient's blood pressure, pulse, and oxygen saturations were monitored continuously. The Olympus Colonoscope was introduced through the anus and advanced to the cecum, identified by appendiceal orifice and ileocecal valve. The colonoscopy was performed without difficulty. The patient tolerated the procedure well. The quality of the bowel preparation was excellent. Findings: The perianal and digital rectal examinations were normal. Internal hemorrhoids were found during retroflexion. The hemorrhoids were Grade I (internal hemorrhoids that do not prolapse). The exam was otherwise without abnormality. Procedure Code(s): --- Professional --- G0121, Colorectal cancer screening; colonoscopy on individual not meeting criteria for high risk Diagnosis Code(s): --- Professional --- Z12.11, Encounter for screening for malignant neoplasm of colon CPT copyright 2020 [employer]. All rights reserved. The codes documented in this report are preliminary and upon power reactor operator review may be revised to meet current compliance requirements. Henry Madison MD 04/09/2024 3:54:02 PM This report has been signed electronically.Henry Madison MD Number of Addenda: 0 Note Initiated On: 04/09/2024 3:32 PM Scope Withdrawal Time: 0 hours 8 minutes 7 seconds Scope In: 3:37:01 PM Scope Out: 3:47:06 PM Endoscopy Department at [facility] - [address] [place] [phone] Procedure Note Henry Madison MD - 04/09/2024 [facility] Patient Name: Aden Elizondo Procedure Date: 04/09/2024 3:32 PM Date of [...] the physician, the nurse, theanesthetist and the auto emissions technician in the pre-procedure area in the [...] for malignantneoplasm of colon CPT copyright 2020 [employer]. All rights reserved. The codes documented in this report are preliminary and upon power reactor operator reviewmay be revised to meet current compliance requirements. Henry Madison MD 04/09/2024 3:54:02 PM This report has been signed electronically.Henry Madison MD Number of Addenda: 0 Note Initiated On: 04/09/2024 3:32 PM Scope Withdrawal Time: 0 hours 8 minutes 7 seconds Scope In: 3:37:01 PM Scope Out: 3:47:06 PM Endoscopy Department at [facility] - [address] [place] [phone] IMPRESSION: - Internal hemorrhoids. - The examination was otherwise normal. - No specimens collected. Recommendation: - Discharge patient to home. - Repeat colonoscopy in 10 years for screening purposes. us Henry Madison MD GI~PROCEDURE ORDERABLES Fin al Result * (ABNORMAL) Microalbumin creatinine urine ratio (04/04/2024 10:50 AM EST) Creatinine, Urine 238.0 mg/dL LAB CHEMISTRY METHOD 04/04/2024 1:27 PM EST [facility] Microalb, Ur 40.9(H) 0.0 - 29.0 mg/L LAB CHEMISTRY METHOD 04/04/2024 1:27 PM EST [facility] Microalb/Crea t Ratio 17 <30 mg/g creat LAB CHEMISTRY METHOD 04/04/2024 1:27 PM EST [facility] Urine Urine specimen from urethra / Unknown Non-blood Collection / Unknown 04/04/2024 10:50 AM EST 04/04/2024 10:50 AM EST us Rebecca MARIE LAB URINE ORDERABLES Final Re sult [facility] [address] [place] [address], [place] [phone] from Last 3 Months or Most Recently Relevant to Health Maintenance
--- OUTSIDE RECORDS SUMMARY | 2025-02-21 07:46 | XMS_ITS | Clinical Summary ---
Author Organization [facility] Prior to 08/03/[address] [place] [id number] Care Team Providers Care Rcis Name Role Phone Hector Perry MD Primary Care Provider [phone] Allergies No known active allergies Medications Medication [...] 03/27/2023 Active Cholecalciferol (Vitamin D) 50 MCG (1999 UT) CAPS Take 1 capsule by mouth daily. 0 04/03/2023 Active atorvastatin (LIPITOR) tablet 10 mg Take 1 tablet (10 mg total) by mouth every night at bedtime. 0 07/04/2023 Active rizatriptan (MAXALT-AUDIO VISUAL DIRECTOR) 10 MG disintegrating tablet Take 1 tablet [...] age to complete this topic Care Teams Rcis Relationship Specialty Start Date End Date Hector Perry MD [address] [place] [address] PCP - General Internal Medicine 12/11/20
[2025-02-21 07:58] VITALS: BP 136/68; PULSE 73; BMI 25.8
--- NOTE | 2025-02-21 07:58 | A.PHYSOV ---
Vital Signs 02/21/25 07:58 Height 5 ft 10 in Weight 180 lb BMI 25.8 BP 136/68 Pulse 73 Intake Visit Reasons: Bilateral Lumbar Facet Injection L4-5 L5-S1 Intake Note: Patient is a 59 year old male in office for a Bilateral Lumbar Facet Injection L4-5 L5-S1. 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 Allergies oxycodone (OxyContin) Allergy (Intermediate, Verified 02/21/25 07:57) Headache PFSH Medical History Chronic pain Migraines High cholesterol Hypertension Surgical History History of appendectomy H/O left knee surgery Social History (Updated 02/21/25 @ 08:00 by Rachelle Hough MA) Household Members: None Alcohol intake: never Patient Tobacco Use Status: Former Tobacco user Current occupational status: retired Physical Exam Vital Signs: Last Vital Signs Pulse 73 02/21/25 07:58 BP 136/68 02/21/25 07:58 BMI result Body Mass Index 25.8 Office Procedures Procedure Details: Procedure performed: Bilateral L4-L5, L5-S1 facet joint injections Preop diagnosis: Lumbar facet arthropathy Postop diagnosis: The same Anesthesia: Local After informed consent was obtained, patient was brought into the procedure room and placed in the prone position on the procedure table. Skin over the lumbar sacral area was prepped and draped in the usual sterile manner. The facet joints indicated above were visualized utilizing fluoroscopy. For each joint 3.5 inch 22 gauge spinal needle was introduced percutaneously and advanced to enter the joint space. Needle placement was verified utilizing 0.2 cc of Omnipaque contrast solution. Each joint received total 1.5 cc of therapeutic solution containing 20 mg of of triamcinolone and 2% lidocaine. Radiation exposure was recorded and documented in chart. [id number] Lumbar Facet Inj SINGLE Level- use with FL Gd order: [id number] - Bilateral 28753 Lumbar Facet Inj SECOND Level- use with FL Gd order: [id number] - Bilateral Procedure code (CPT) selection complete Office Meds Kenalog 40 mg/mL suspension for injection Performing Provider: Morgan Gutierrez DO Performing Location: [facility] Administered by: Morgan Gutierrez DO on 02/21/25 08:25 Dose Route Admin Location Dispensed Lot Number Expiration Date [facility] [employer] 80 mg intra-articular 2 mL [id number] [employer] Total Dispensed Waste 2 mL 0 % lidocaine (PF) 20 mg/mL (2 %) injection solution Performing Provider: Morgan Gutierrez DO Performing Location: [facility] Administered by: Morgan Gutierrez DO on 02/21/25 08:25 Dose Route Admin Location Dispensed Lot Number Expiration Date [facility] [employer] 40 mg intra-articular 5 mL [id number] [facility] Total Dispensed Waste 5 mL 60 % Omnipaque 300 300 mg iodine/mL intravenous solution Performing Provider: Morgan Gutierrez DO Performing Location: [facility] Administered by: Morgan Gutierrez DO on 02/21/25 08:25 Dose Route Admin Location Dispensed Lot Number Expiration Date [facility] [employer] 3 mL intra-articular 10 mL [id number] [employer] Total Dispensed Waste 10 mL 70 % Assessment & Plan Assessment & Plan (1) Spondylosis of lumbar region without myelopathy or radiculopathy: Code(s): M47.816 - Spondylosis without myelopathy or radiculopathy, lumbar region Category: Medical Plan: Procedure performed Orders: Orders FL Gd Lumbar Spine Facet Inj Today M47.816 - Spondylosis without myelopathy or radiculopathy, lumbar region AMB Lumbar Facet Injection Today M47.816 - Spondylosis without myelopathy or radiculopathy, lumbar region Coding Level of Care Code Procedure Only Diagnoses Spondylosis of lumbar region without myelopathy or radiculopathy M47.816 CPT Codes Lumbar Facet Injection - 98224 Thoracic Facet Inj CPT: 39697 - Bilateral ([id number]) Lumbar Facet Injection - 99704 Thoracic Facet Inj CPT: 38753 - Bilateral ([id number])
== END 2025-02-21 08:39 | disposition home or self-care (01) ==
LOC: HO.HPHYS 07:44
PROVIDERS: PCP Internal Medicine; Visit Provider Physical Medicine & Rehabilitation
DX: M47.816 Spondylosis without myelopathy or radiculopathy, lumbar region (principal)
CPT/HCPCS: 64493; 64494